=== PATIENT | female | born 1970 | race American Indian/Alaskan Native ===

== ENCOUNTER 2019-06-20 11:30 | Emergency (ER) | payer MEDICARE ==
[2019-06-20] MEDS ORDERED: SODIUM CHLORIDE 0.9% 1000 ML 1,000 ML IV ONE (12:35)
[2019-06-20] MEDS ORDERED: methylPREDNISolone Sod Succinate 125 MG/2 ML INJ IV ONE (12:35)
[2019-06-20] MEDS ORDERED: IPRATROPIUM/ALBUTEROL SULFATE 3 ML AMPUL.NEB IH ONE (12:36)
[2019-06-20] MEDS ORDERED: KETOROLAC 30 MG/1 ML INJ IV ONE ×2 (13:25→13:27)
[2019-06-20] MEDS ORDERED: KETOROLAC 30 MG/1 ML INJ ONE (13:28)
--- NOTE | 2019-06-20 13:58 | XRay Report ---
CHEST 1 VIEW INDICATION: cough. COMPARISON: None FINDINGS: Support devices: None. Heart: Within normal limits. Lungs/Pleura: No acute air space or interstitial disease. Additional findings: None. IMPRESSION: No acute findings. Signer Name: Aram Gore Jr, MD Signed: 06/20/2019 1:54 PM Workstation Name: [id number]
--- NOTE | 2019-06-20 14:16 | Emergency Department Report ---
- General Chief Complaint: Dyspnea/Respdistress Stated Complaint: JM Time Seen by Provider: 06/20/19 11:57 Source: patient, EMS Mode of arrival: Stretcher Limitations: No Limitations - History of Present Illness Initial Comments: Patient denies fam hx PE/DVT, denies recent travel, denies hormone use MD Complaint: cough -: Gradual, days(s) Severity: moderate Severity scale (0 -10): 3 Consistency: intermittent Improves With: nothing Worsens With: nothing Context: sick contacts (coughing runny nose), other (reports drug abuse smokes cocaine) Associated Symptoms: myalgias, cough (sputum production), chest pain, shortness of breath. denies: fever, chills, diaphoresis, headache, rhinorrhea, nasal congestion, sore throat, stiff neck, abdominal pain, nausea, vomiting, diarrhea, dysuria, rash, confusion, right sweats, weight loss, epistaxis, hoarseness, ear pain - Related Data Home Medications Medication Instructions Recorded Confirmed Last Taken ALPRAZolam [Xanax] 0.5 mg PO BID PRN 07/29/13 07/29/13 Unknown Previous Rx's Medication Instructions Recorded Last Taken Type Albuterol Sulfate [Ventolin HFA] 2 puff IH Q4H PRN #1 hfa.aer.ad 07/30/13 Unknown Rx Ciprofloxacin HCl [Cipro] 500 mg PO Q12H #20 tab 07/30/13 Unknown Rx Loratadine [Claritin] 10 mg PO DAILY #30 tablet 07/30/13 Unknown Rx Promethazine /Codeine 5 ml PO Q6H PRN #150 udc 07/30/13 Unknown Rx [Phenergan/Codeine 6.25-10 mg/5 ml] Cyclobenzaprine [Flexeril] 5 mg PO TID PRN #30 tablet 08/06/13 Unknown Rx Hydrocortisone 2.5% [Hytone 2.5% 1 applicatio TP TID #1 tube 05/22/14 Unknown Rx CREAM] Loratadine [Claritin] 10 mg PO DAILY #15 tablet 05/22/14 Unknown Rx diphenhydrAMINE [Benadryl] 25 mg PO Q6HR PRN #20 capsule 05/22/14 Unknown Rx predniSONE [Deltasone] 40 mg PO QDAY #6 tab 08/21/14 Unknown Rx Acetaminophen/Codeine 1 tab PO Q6H PRN #10 tab 10/14/14 Unknown Rx [Acetaminophen-Codeine #3 TAB] Cyclobenzaprine [Flexeril 10 MG 10 mg PO TID PRN #15 tablet 10/14/14 Unknown Rx TAB] Ibuprofen [Motrin 800 MG tab] 600 mg PO TID PRN #20 tablet 10/14/14 Unknown Rx Albuterol Sulfate [Proair 90 mcg IH Q4H PRN #1 aer.pow.ba 06/20/19 Unknown Rx Respiclick] Azithromycin [Zithromax Z-MARIBEL] 250 mg PO DAILY #4 tablet 06/20/19 Unknown Rx predniSONE [Deltasone] 50 mg PO QDAY #5 tab 06/20/19 Unknown Rx Allergies Allergy/AdvReac Type Severity Reaction Status Date / Time No Known Allergies Allergy Verified 07/29/13 21:08 ED Review of Systems ROS: Stated complaint: JM Other details as noted in HPI Other: GENERAL: No weight change, fatigue, fever, chills, or night sweats SKIN: No changes in skin or hair, no itching, no rashes, no jaundice HEAD: No trauma, headache, or visual changes EYES: No blurriness, tearing, itching, acute visual loss, conjunctival discoloration, or scleral icterus EARS: No hearing loss, tinnitus, vertigo, or earache NOSE: No rhinorrhea, stuffiness, sneezing, itching, or epistaxis MOUTH: No bleeding gums, hoarseness, sore throat, or swelling CARDIAC: No new murmur, chest pain, palpitations, dyspnea on exertion, orthopnea, PND, or edema RESPIRATORY: Shortness of breath, wheeze, cough, sputum production. No hemoptysis, pneumonia, asthma, bronchitis, or emphysema GI: No change in appetite, nausea, vomiting, dysphagia, diarrhea, constipation, hematemesis, melena, hematochezia, or abdominal pain URINARY: No frequency, urgency, polyuria, dysuria, hematuria, or incontinence MUSCULOSKELETAL: No muscle weakness, joint stiffness, decrease in range of motion, redness, swelling NEUROLOGIC: No headache, syncope, loss of sensation, numbness, tingling, tremors, weakness, paralysis, seizures HEMATOLOGIC: No anemia, easy bruising, bleeding, petechiae, or purpura ENDOCRINE: No hot or cold intolerance, sweating, polyuria, polydipsia or, polyphagia no thyroid problems PSYCHIATRIC: No change in mood, no anxiety, no depression ED Past Medical Hx - Past Medical History Previous Medical History?: Yes Additional medical history: Cerebral palsy - Surgical History Past Surgical History?: Yes Additional Surgical History: Hysterectomy, foot, breast reduction, , and lung collaspase. - Social History Smoking Status: Never Smoker Substance Use Type: None - Medications Home Medications: Home Medications Medication Instructions Recorded Confirmed Last Taken Type ALPRAZolam [Xanax] 0.5 mg PO BID PRN 07/29/13 07/29/13 Unknown History Albuterol Sulfate [Ventolin HFA] 2 puff IH Q4H PRN #1 hfa.aer.ad 07/30/13 Unknown Rx Ciprofloxacin HCl [Cipro] 500 mg PO Q12H #20 tab 07/30/13 Unknown Rx Loratadine [Claritin] 10 mg PO DAILY #30 tablet 07/30/13 Unknown Rx Promethazine /Codeine 5 ml PO Q6H PRN #150 udc 07/30/13 Unknown Rx [Phenergan/Codeine 6.25-10 mg/5 ml] Cyclobenzaprine [Flexeril] 5 mg PO TID PRN #30 tablet 08/06/13 Unknown Rx Hydrocortisone 2.5% [Hytone 2.5% 1 applicatio TP TID #1 tube 05/22/14 Unknown Rx CREAM] Loratadine [Claritin] 10 mg PO DAILY #15 tablet 05/22/14 Unknown Rx diphenhydrAMINE [Benadryl] 25 mg PO Q6HR PRN #20 capsule 05/22/14 Unknown Rx predniSONE [Deltasone] 40 mg PO QDAY #6 tab 05/22/14 Unknown Rx Acetaminophen/Codeine 1 tab PO Q6H PRN #10 tab 10/14/14 Unknown Rx [Acetaminophen-Codeine #3 TAB] Cyclobenzaprine [Flexeril 10 MG 10 mg PO TID PRN #15 tablet 10/14/14 Unknown Rx TAB] Ibuprofen [Motrin 800 MG tab] 600 mg PO TID PRN #20 tablet 10/14/14 Unknown Rx Albuterol Sulfate [Proair 90 mcg IH Q4H PRN #1 aer.pow.ba 06/20/19 Unknown Rx Respiclick] Azithromycin [Zithromax Z-MARIBEL] 250 mg PO DAILY #4 tablet 06/20/19 Unknown Rx predniSONE [Deltasone] 50 mg PO QDAY #5 tab 06/20/19 Unknown Rx ED Physical Exam - General Limitations: No Limitations - Other Other exam information: GENERAL: Patient in no acute distress HEAD: Normocephalic, atraumatic EYES: PERRLA, EOM intact, no scleral icterus, no conjunctival hemorrhage, visual valenzuela and acuity wnl NOSE: No tenderness, discharge, sinus tenderness MOUTH: No erythema, bleeding, exudate HEART: Tachycardia, no murmur, S1-S2 are auscultated, no edema, pulses are symmetric LUNGS: Wheezing bilaterally, mild tachypnea. No respiratory distress. Bilateral breath sounds, No retractions, No rales, rhonchi ABDOMEN: Normal bowel sounds, abdomen soft, no tenderness, no rebound, no guarding, no distention, no masses, no CVA tenderness MUSCULOSKELETAL: Normal joint range of motion, no redness, no swelling, no tenderness NEUROLOGIC: GCS 15, Alert and Oriented x3, Cranial nerves intact, normal sensation, normal strength, no cerebellar deficit, NIHSS 0 SKIN: Skin is warm and dry, no wounds, no rashes ED Course Vital Signs 06/20/19 06/20/19 06/20/19 11:33 12:19 12:20 Temperature 98.8 F 98.8 F Pulse Rate 79 79 Pulse Rate [ Anterior Bilateral Throughout] Respiratory 16 13 14 Rate Respiratory Rate [Anterior Bilateral Throughout] Blood Pressure 150/93 Blood Pressure 134/84 [Left] O2 Sat by Pulse 97 98 98 Oximetry 06/20/19 13:31 Temperature Pulse Rate Pulse Rate [ 82 Anterior Bilateral Throughout] Respiratory Rate Respiratory 18 Rate [Anterior Bilateral Throughout] Blood Pressure Blood Pressure [Left] O2 Sat by Pulse Oximetry ED Medical Decision Making - Radiology Data Radiology results: report reviewed - Medical Decision Making Patient comfortable. Reports symptom improvement. Ambulating in the ER without difficulty. Updated with results. Plan discharge with outpatient follow up. Return if any worsening. Critical care attestation.: If time is entered above; I have spent that time in minutes in the direct care of this critically ill patient, excluding procedure time. ED Disposition Clinical Impression: Bronchitis Disposition: DC- TO HOME OR SELFCARE Is pt being admited?: No Condition: Stable Instructions: Acute Bronchitis (ED) Prescriptions: predniSONE [Deltasone] 50 mg PO QDAY #5 tab Albuterol Sulfate [Proair Respiclick] 90 mcg IH Q4H PRN #1 aer.pow.ba PRN Reason: Wheezing Azithromycin [Zithromax Z-MARIBEL] 250 mg PO DAILY #4 tablet Referrals: PRIMARY CARE, [Primary Care Provider] - 2-3 Days [facility] [Outside] - 2-3 Days Time of Disposition: 14:23
[2019-06-20 16:02] VITALS: BP 133/83
== END 2019-06-20 15:45 | disposition home or self-care (01) ==
LOC: ED 11:30
DX: J40 Bronchitis, not specified as acute or chronic (principal); Z79.899 Other long term (current) drug therapy; Z90.710 Acquired absence of both cervix and uterus; Z98.890 Other specified postprocedural states
CPT/HCPCS: 71045; 94640; 96374; 96375; 99284; J1885; J2930; J7030; 94644; 96361

== ENCOUNTER 2021-03-16 12:51 | Outpatient (CLI) | payer MEDICARE ==
--- NOTE | 2021-03-16 14:52 | XRay Report ---
CERVICAL SPINE 5 VIEWS INDICATION / CLINICAL INFORMATION: NECK PAIN. COMPARISON: None available. FINDINGS: Reversal of the normal cervical lordosis which may be positional. Moderate degenerative change from C 3 to C5 and at the C6-7 level. No other significant skeletal abnormality Signer Name: Jose Manuel Beltran MD FACR Signed: 03/16/2021 2:47 PM Workstation Name: [id number]
--- NOTE | 2021-03-16 14:53 | XRay Report ---
LUMBAR SPINE 6 VIEWS INDICATION / CLINICAL INFORMATION: LOW BACK PAIN. COMPARISON: None available. FINDINGS: Narrowing of the L3-4 and L4-5 disc spaces with mild hypertrophic change. No other significant skelet al abnormality. Alignment is normal. Signer Name: Jose Manuel Beltran MD FACR Signed: 03/16/2021 2:48 PM Workstation Name: [id number]
--- NOTE | 2021-03-16 14:53 | XRay Report ---
CHEST 2 VIEWS INDICATION / CLINICAL INFORMATION: SOB PERIODIC. COMPARISON: 06/20/2019 FINDINGS: SUPPORT DEVICES: None. HEART / MEDIASTINUM: No significant abnormality. LUNGS / PLEURA: No significant pulmonary or pleural abnormality. No pneumothorax. ADDITIONAL FINDINGS: No significant additional findings. IMPRESSION: No significant abnormality or interval change from 06/20/2019 Signer Name: Jose Manuel Beltran MD FACR Signed: 03/16/2021 2:48 PM Workstation Name: [email or web address]
== END 2021-03-16 12:52 | disposition home or self-care (01) ==
LOC: XRAY 12:51
PROVIDERS: ATTEND Family Medicine
DX: R06.02 Shortness of breath (principal); M47.812 Spondylosis without myelopathy or radiculopathy, cervical region; M48.02 Spinal stenosis, cervical region
CPT/HCPCS: 71046; 72050; 72110

== ENCOUNTER 2021-04-12 13:16 | Emergency (ER) | payer MEDICARE ==
[2021-04-12 14:15] VITALS: BP 156/93
[2021-04-12 15:47] LABS: Basophils # (Auto) 0.1 K/mm3 (0.0-0.1); Basophils % (Auto) 0.4 % (0.0-1.8); Eosinophils % (Auto) 0.2 % (0.0-4.3); Hematocrit 44.8 % (30.3-42.9); Hemoglobin 14.6 gm/dl (10.1-14.3); Lymphocytes # (Auto) 1.9 K/mm3 (1.2-5.4); Lymphocytes % (Auto) 15.4 % (13.4-35.0); Mean Corpuscular HGB Conc 33 % (30-34); Mean Corpuscular Volume 95 fl (79-97); Monocytes # (Auto) 1.1 K/mm3 (0.0-0.8); Monocytes % (Auto) 9.4 % (0.0-7.3); Platelet Count 173 K/mm3 (140-440); Red Blood Count 4.74 M/mm3 (3.65-5.03); Red Cell Distribution Width 14.1 % (13.2-15.2)
--- NOTE | 2021-04-12 15:55 | XRay Report ---
CHEST 2 VIEWS INDICATION / CLINICAL INFORMATION: shortness of breath. COMPARISON: 03/16/21 FINDINGS: SUPPORT DEVICES: None. HEART / MEDIASTINUM: No significant abnormality. LUNGS / PLEURA: Interval development of patchy bilateral pulmonary opacities. No pneumothorax. ADDITIONAL FINDINGS: No significant additional findings. IMPRESSION: 1. Patchy bilateral pneumonia. Signer Name: Antonette Young MD Signed: 04/12/2021 3:51 PM Workstation Name: [id number]
[2021-04-12 16:51] LABS: Alanine Aminotransferase 13 units/L (7-56); Albumin 4.6 g/dL (3.9-5); Blood Urea Nitrogen 7 mg/dL (7-17); Calcium 9.6 mg/dL (8.4-10.2); Hemolysis Index 168
--- NOTE | 2021-04-12 17:07 | Event Note ---
ED Screening Note Date of service: 04/12/21 Time: 17:01 ED Screening Note: 50 y/o female pt w/ hx of tobacco use (in remission) and pneumonia requiring ICU admission/mechanical ventilation presents to ED w/ complaints of fever, chills, productive cough, SOB, and myalgias starting two days ago. No known sick contacts. No current steroid or antibiotic use. Patient received her Covid vaccination series in December. No recent travel. General: Awake, appropriately interactive, no acute distress. Neck: Supple. Full range of motion intact. Cardiovascular: Tachycardic. Normal peripheral perfusion. Pulmonary: Dyspnea on exertion. Diffuse rhonchi bilaterally with expiratory wheezing throughout. Skin: No apparent rashes or lesions. Neurological: No facial asymmetry. Speech is clear. Follows commands. Patient is alert and oriented. Musculoskeletal: Moves all four extremities spontaneously with normal range of motion. Psych: Cooperative. Appropriate mood and affect. Labs and chest x-ray ordered by wig dresser prior to [facility]SE. I have greeted and performed a focused rapid initial assessment of this patient. A comprehensive ED assessment and evaluation of the patient, analysis of all test results, and completion of the medical decision-making process will be conducted by additional ED providers. This initial assessment/diagnostic orders/clinical plan/treatment(s) is/are subject to change based on patients health status, clinical progression and re-assessment. Further treatment and workup at subsequent clinical provider's discretion. Patient/guardian urged not to elope from the ED as their condition may be serious if not clinically assessed and managed.
[2021-04-12 18:04] LABS: BUN/Creatinine Ratio 14
--- NOTE | 2021-04-13 10:53 | Electrocardiograph Report ---
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
--- NOTE | 2021-04-13 11:00 | History and Physical Report ---
History of Present Illness Date of examination: 04/13/21 Date of admission: 04/13/21 Medications and Allergies Allergies Allergy/AdvReac Type Severity Reaction Status Date / Time No Known Allergies Allergy Verified 07/29/13 21:08 Home Medications Medication Instructions Recorded Confirmed Last Taken Type ALPRAZolam [Xanax] 0.5 mg PO BID PRN 07/29/13 07/29/13 Unknown History Albuterol Sulfate [Ventolin HFA] 2 puff IH Q4H PRN #1 hfa.aer.ad 07/30/13 Unknown Rx Ciprofloxacin HCl [Cipro] 500 mg PO Q12H #20 tab 07/30/13 Unknown Rx Loratadine (Nf) [Claritin] 10 mg PO DAILY #30 tablet 07/30/13 Unknown Rx Promethazine /Codeine 5 ml PO Q6H PRN #150 udc 07/30/13 Unknown Rx [Phenergan/Codeine 6.25-10 mg/5 ml] Cyclobenzaprine [Flexeril] 5 mg PO TID PRN #30 tablet 08/06/13 Unknown Rx Hydrocortisone 2.5% [Hytone 2.5% 1 applicatio TP TID #1 tube 05/22/14 Unknown Rx CREAM] Loratadine (Nf) [Claritin] 10 mg PO DAILY #15 tablet 05/22/14 Unknown Rx diphenhydrAMINE [Benadryl] 25 mg PO Q6HR PRN #20 capsule 05/22/14 Unknown Rx predniSONE [Deltasone] 40 mg PO QDAY #6 tab 05/22/14 Unknown Rx Acetaminophen/Codeine 1 tab PO Q6H PRN #10 tab 10/14/14 Unknown Rx [Acetaminophen-Codeine #3 TAB] Cyclobenzaprine [Flexeril 10 MG 10 mg PO TID PRN #15 tablet 10/14/14 Unknown Rx TAB] Ibuprofen [Motrin 800 MG tab] 600 mg PO TID PRN #20 tablet 10/14/14 Unknown Rx Albuterol Sulfate [Proair 90 mcg IH Q4H PRN #1 aer.pow.ba 06/20/19 Unknown Rx Respiclick] Azithromycin [Zithromax Z-MARIBEL] 250 mg PO DAILY #4 tablet 06/20/19 Unknown Rx Benzonatate [Tessalon Perles] 100 mg PO Q8HR PRN #15 capsule 06/20/19 Unknown Rx predniSONE [Deltasone] 50 mg PO QDAY #5 tab 06/20/19 Unknown Rx Exam - Constitutional Vitals: Temp Pulse Resp BP Pulse Ox 99.8 F H 99 H 19 156/93 92 04/12/21 14:13 04/12/21 14:13 04/12/21 14:13 04/12/21 14:13 04/12/21 14:13 HEART Score - HEART Score Troponin: Troponin T < 0.010 ng/mL (0.00-0.029) 04/12/21 15:23 Results - Labs CBC & Chem 7: 04/12/21 15:23 04/12/21 15:23 Labs: Abnormal lab results 04/12/21 04/12/21 Range/Units 15:23 15:23 WBC 12.2 H (4.5-11.0) K/mm3 Hgb 14.6 H (10.1-14.3) gm/dl Hct 44.8 H (30.3-42.9) % [place] % (Auto) 9.4 H (0.0-7.3) % [place] # (Auto) 1.1 H (0.0-0.8) K/mm3 Seg Neutrophils % 74.6 H (40.0-70.0) % Seg Neutrophils # 9.1 H (1.8-7.7) K/mm3 Carbon Dioxide 17 L (22-30) mmol/L Creatinine 0.5 L (0.6-1.2) mg/dL Glucose 107 H (65-100) mg/dL Assessment and Plan - Patient Problems (1) Acute respiratory failure with hypoxia Plan to address problem: Probably due to community-acquired pneumonia Oxygen titrate O2 sats more than 90% Will rule out COVID-19 by checking [place] PCR oxygen evaluation inpatient and prior to discharge (2) Pneumonia Plan to address problem: Probably community-acquired pneumonia; Empiric antibiotics Levaquin. Oxygen titrate O2 sats to more than 90% Blood cultures supportive care. As patient has bilateral pneumonia and fever We will rule out COVID-19 (3) Suspected 2019 novel coronavirus infection Status: Acute Plan to address problem: PUI/high suspicion for COVID-19 Contact and droplet isolation [place] PCR test requested Oxygen titrate O2 sats more than 90% If COVID-19 is positive will consult ID And inflammatory markers if needed (4) DVT prophylaxis Status: Acute (5) Full code status Status: Acute (6) Morbid obesity with BMI of 40.0-44.9, adult Status: Acute Plan to address problem: Patient need dietary modification, exercise as tolerated and weight reduction when medically stable Patient also needs pulmonary evaluation and, outpatient sleep study to evaluate for obstructive sleep apnea Recommend bariatric surgical evaluation as outpatient for weight reduction program, when medically stable
[2021-04-13] MEDS ORDERED: ONDANSETRON 4 MG/2 ML INJ IV PRN (11:05)
[2021-04-13] MEDS ORDERED: DOCUSATE SODIUM 100 MG CAP PO PRN (11:05)
[2021-04-13] MEDS ORDERED: IBUPROFEN 600 MG TAB PO PRN (11:05)
[2021-04-13] MEDS ORDERED: oxyCODONE /ACETAMINOPHEN 5-325MG TAB PO PRN (11:05)
[2021-04-13] MEDS ORDERED: ACETAMINOPHEN 325 MG TAB PO PRN (11:05)
[2021-04-13] MEDS ORDERED: diphenhydrAMINE 25 MG CAP PO PRN (11:12)
[2021-04-13] MEDS ORDERED: ALBUTEROL 8.5 GM MDI INHALATION IH PRN (11:12)
[2021-04-13] MEDS ORDERED: ALPRAZolam 0.5 MG TAB PO PRN (11:12)
[2021-04-13] MEDS ORDERED: guaiFENesin DM 200/20 MG ORAL LIQD 10 ML PO PRN (11:19)
[2021-04-13] MEDS ORDERED: hydrALAZINE 20 MG/1 ML INJ IV PRN (11:20)
[2021-04-13] MEDS ORDERED: ZOLPIDEM 5 MG TAB PO ONE (12:00)
[2021-04-13] MEDS ORDERED: HYDROCORTISONE 2.5% Topical CREAM 20 GM TP SCH (14:00)
== END 2021-04-12 22:00 | disposition left against medical advice (07) ==
LOC: ED 13:16
DX: R05 Cough (principal); Z53.21 Procedure and treatment not carried out due to patient leaving prior to being seen by health care provider
CPT/HCPCS: 36415; 71046; 80053; 83880; 84484; 85025; 93005; A6250

== ENCOUNTER 2021-04-13 02:31 | Inpatient (IN) | payer MEDICARE ==
[2021-04-13] MEDS ORDERED: SODIUM CHLORIDE 0.9% 1000 ML 1,000 ML IV ONE (09:23)
[2021-04-13] MEDS ORDERED: ACETAMINOPHEN 500 MG TAB PO ONE (09:23)
[2021-04-13] MEDS ORDERED: ONDANSETRON 4 MG/2 ML INJ IV ONE (09:23)
[2021-04-13] MEDS ORDERED: AZITHROMYCIN/NS 500 MG/250 ML 500 MG/250 ML BAG IV ONE (09:36)
[2021-04-13] MEDS ORDERED: dexAMETHasone 4 MG/ML VIAL IV ONE (09:36)
[2021-04-13] MEDS ORDERED: cefTRIAXone/NS 1 GM/50 ML 1 GM/50 ML BAG IV ONE ×2 (09:36→12:20)
--- NOTE | 2021-04-13 09:39 | Emergency Department Report ---
ED General Adult HPI - General Chief complaint: Dyspnea/Respdistress Stated complaint: SOB PUI?: Yes Time Seen by Provider: 04/13/21 09:07 Source: patient, RN notes reviewed, old records reviewed Mode of arrival: Ambulatory Limitations: Physical Limitation - History of Present Illness Initial comments: The patient was evaluated in the emergency department for symptoms described in the history of present illness. He/she was evaluated in the context of the global COVID-19 pandemic, which necessitated consideration that the patient might be at risk for infection with the virus that causes COVID-19. Institutional protocols and algorithms that pertain to the evaluation of patients at risk for COVID-19 are in a state of rapid change based on information released by regulatory bodies including the CDC and federal and state organizations. These policies and algorithms were followed during the patient's care in the emergency department. Please note that these policies, procedures and recommendations changed on a rapid basis. During the entire history and physical examination, I had on complete personal protective equipment. Primary CARE doctor: Dr. Menard Past medical history: Body mass index 42, cerebral palsy, hysterectomy, pneumonia, intubation, up-to-date with COVID-19 vaccination This patient is a pleasant 50-year-old female who is not known to myself previously. The patient presents to the ER today with a complaint of chest tightness, cough, shortness of breath, malaise, fatigue, lack of energy. Denies loss of taste and smell. Has mild headache. No neck pain. Positive chest tightness. No abdominal pain. Positive nausea. No vomiting. No urinary symptoms. Patient reports being intubated 2 years ago at [facility] for similar symptoms. She is a prior tobacco user, but has not smoked tobacco for 3 to 4 months. Her symptoms are constant, worsened with physical exertion, decreased with rest, and with supplemental oxygen. She had laboratory studies within the past 24 hours, which demonstrated a leukocytosis, and anion gap acidosis. She is not currently on antibiotics. She also recently had a chest x-ray which showed multilobar pneumonia. -: Gradual, days(s) Severity scale (0 -10): 8 Consistency: constant Improves with: other Worsens with: other - Related Data Home Medications Medication Instructions Recorded Confirmed Last Taken ALPRAZolam [Xanax] 0.5 mg PO BID PRN 07/29/13 07/29/13 Unknown Previous Rx's Medication Instructions Recorded Last Taken Type Albuterol Sulfate [Ventolin HFA] 2 puff IH Q4H PRN #1 hfa.aer.ad 07/30/13 Unknown Rx Ciprofloxacin HCl [Cipro] 500 mg PO Q12H #20 tab 07/30/13 Unknown Rx Loratadine (Nf) [Claritin] 10 mg PO DAILY #30 tablet 07/30/13 Unknown Rx Promethazine /Codeine 5 ml PO Q6H PRN #150 udc 07/30/13 Unknown Rx [Phenergan/Codeine 6.25-10 mg/5 ml] Cyclobenzaprine [Flexeril] 5 mg PO TID PRN #30 tablet 08/06/13 Unknown Rx Hydrocortisone 2.5% [Hytone 2.5% 1 applicatio TP TID #1 tube 05/22/14 Unknown Rx CREAM] Loratadine (Nf) [Claritin] 10 mg PO DAILY #15 tablet 05/22/14 Unknown Rx diphenhydrAMINE [Benadryl] 25 mg PO Q6HR PRN #20 capsule 05/22/14 Unknown Rx predniSONE [Deltasone] 40 mg PO QDAY #6 tab 05/22/14 Unknown Rx Acetaminophen/Codeine 1 tab PO Q6H PRN #10 tab 10/14/14 Unknown Rx [Acetaminophen-Codeine #3 TAB] Cyclobenzaprine [Flexeril 10 MG 10 mg PO TID PRN #15 tablet 10/14/14 Unknown Rx TAB] Ibuprofen [Motrin 800 MG tab] 600 mg PO TID PRN #20 tablet 10/14/14 Unknown Rx Albuterol Sulfate [Proair 90 mcg IH Q4H PRN #1 aer.pow.ba 06/20/19 Unknown Rx Respiclick] Azithromycin [Zithromax Z-MARIBEL] 250 mg PO DAILY #4 tablet 06/20/19 Unknown Rx Benzonatate [Tessalon Perles] 100 mg PO Q8HR PRN #15 capsule 06/20/19 Unknown Rx predniSONE [Deltasone] 50 mg PO QDAY #5 tab 06/20/19 Unknown Rx Allergies Allergy/AdvReac Type Severity Reaction Status Date / Time No Known Allergies Allergy Verified 07/29/13 21:08 ED Review of Systems ROS: Stated complaint: SOB Other details as noted in HPI Constitutional: fever, malaise, weakness Eyes: denies: eye discharge ENT: congestion Respiratory: cough, shortness of breath, SOB with exertion, SOB at rest Cardiovascular: chest pain Gastrointestinal: denies: vomiting Genitourinary: denies: dysuria Musculoskeletal: myalgia Neurological: weakness Psychiatric: anxiety Hematological/Lymphatic: denies: easy bleeding ED Past Medical Hx - Past Medical History Previous Medical History?: Yes Additional medical history: Cerebral palsy - Surgical History Past Surgical History?: Yes Hx Breast Surgery: Yes Additional Surgical History: Hysterectomy, foot, breast reduction, , and lung collaspase. - Social History Smoking Status: Never Smoker - Medications Home Medications: Home Medications Medication Instructions Recorded Confirmed Last Taken Type ALPRAZolam [Xanax] 0.5 mg PO BID PRN 07/29/13 07/29/13 Unknown History Albuterol Sulfate [Ventolin HFA] 2 puff IH Q4H PRN #1 hfa.aer.ad 07/30/13 Unknown Rx Ciprofloxacin HCl [Cipro] 500 mg PO Q12H #20 tab 07/30/13 Unknown Rx Loratadine (Nf) [Claritin] 10 mg PO DAILY #30 tablet 07/30/13 Unknown Rx Promethazine /Codeine 5 ml PO Q6H PRN #150 udc 07/30/13 Unknown Rx [Phenergan/Codeine 6.25-10 mg/5 ml] Cyclobenzaprine [Flexeril] 5 mg PO TID PRN #30 tablet 08/06/13 Unknown Rx Hydrocortisone 2.5% [Hytone 2.5% 1 applicatio TP TID #1 tube 05/22/14 Unknown Rx CREAM] Loratadine (Nf) [Claritin] 10 mg PO DAILY #15 tablet 05/22/14 Unknown Rx diphenhydrAMINE [Benadryl] 25 mg PO Q6HR PRN #20 capsule 05/22/14 Unknown Rx predniSONE [Deltasone] 40 mg PO QDAY #6 tab 05/22/14 Unknown Rx Acetaminophen/Codeine 1 tab PO Q6H PRN #10 tab 10/14/14 Unknown Rx [Acetaminophen-Codeine #3 TAB] Cyclobenzaprine [Flexeril 10 MG 10 mg PO TID PRN #15 tablet 10/14/14 Unknown Rx TAB] Ibuprofen [Motrin 800 MG tab] 600 mg PO TID PRN #20 tablet 10/14/14 Unknown Rx Albuterol Sulfate [Proair 90 mcg IH Q4H PRN #1 aer.pow.ba 06/20/19 Unknown Rx Respiclick] Azithromycin [Zithromax Z-MARIBEL] 250 mg PO DAILY #4 tablet 06/20/19 Unknown Rx Benzonatate [Tessalon Perles] 100 mg PO Q8HR PRN #15 capsule 06/20/19 Unknown Rx predniSONE [Deltasone] 50 mg PO QDAY #5 tab 06/20/19 Unknown Rx ED Physical Exam - General Limitations: Physical Limitation General appearance: alert, anxious, in distress, obese - Head Head exam: Present: atraumatic, normocephalic - Eye Eye exam: Present: normal appearance, EOMI. Absent: nystagmus - ENT ENT exam: Present: normal exam, normal orophraynx, mucous membranes moist, normal external ear exam - Neck Neck exam: Present: normal inspection, full ROM. Absent: tenderness, meningismus - Respiratory Respiratory exam: Present: respiratory distress, accessory muscle use, other (Pulmonary auscultation not performed secondary to lack of disposable stethoscope). Absent: stridor - Cardiovascular Cardiovascular Exam: Present: normal rhythm, tachycardia, other (Tachycardic rate seen on traffic monitor specialist. Cardiac auscultation is not performed secondary to lack of disposable stethoscope) - GI/Abdominal GI/Abdominal exam: Present: soft. Absent: distended, tenderness, guarding, rebound, rigid, pulsatile mass - Extremities Exam Extremities exam: Present: normal inspection, full ROM, other (2+ pulses noted in the bilateral upper and lower extremities. There is no palpable cord. negative Homans sign. Muscular compartments are soft. The pelvis is stable.). Absent: pedal edema, calf tenderness - Back Exam Back exam: Present: normal inspection, full ROM. Absent: tenderness, CVA tenderness (R), CVA tenderness (L), paraspinal tenderness, vertebral tenderness - Neurological Exam Neurological exam: Present: alert, oriented X3, other (No facial droop. Tongue midline. Extraocular movements intact bilaterally. Facial sensation intact to light touch in V1, V2, V3 distribution bilaterally. 5 and a 5 strength in 4 extremities. Sensation intact to light touch in 4 extremities.). Absent: motor sensory deficit - Psychiatric Psychiatric exam: Present: anxious - Skin Skin exam: Present: warm, dry, intact, normal color. Absent: rash ED Course Vital Signs 04/13/21 04/13/21 04/13/21 02:47 02:58 08:31 Temperature 100.3 F H 99.8 F H Pulse Rate 104 H 100 H Respiratory 25 H 24 32 H Rate Blood Pressure 150/88 142/82 [Left] O2 Sat by Pulse 91 95 96 Oximetry 04/13/21 08:49 Temperature Pulse Rate 95 H Respiratory Rate Blood Pressure [Left] O2 Sat by Pulse 95 Oximetry ED Medical Decision Making - Lab Data Vital Signs 04/13/21 04/13/21 04/13/21 02:47 02:58 08:31 Temperature 100.3 F H 99.8 F H Pulse Rate 104 H 100 H Respiratory 25 H 24 32 H Rate Blood Pressure 150/88 142/82 [Left] O2 Sat by Pulse 91 95 96 Oximetry 04/13/21 08:49 Temperature Pulse Rate 95 H Respiratory Rate Blood Pressure [Left] O2 Sat by Pulse 95 Oximetry - EKG Data -: EKG Interpreted by Ms EKG shows normal: sinus rhythm Rate: normal - EKG Data When compared to previous EKG there are: previous EKG unavailable 04/13/21 09:52 EKG interpreted at 09: 42 Sinus rhythm, with a rate of 97 bpm. There is a normal axis, and a normal P wave axis. Motion artifact, multiple PVCs. QTC prolonged, 489 ms. Not a STEMI. - Radiology Data Radiology results: report reviewed, image reviewed [facility] [address] [place] [address] XRay Report Signed Patient: HI ONEILL MR#: [id number] : 1970 Acct:[id number] Age/Sex: 50 / F ADM Date: 04/12/21 Loc: ED Attending Dr: Ordering Physician: ALEJANDRA BETANCUR Date of Service: 04/12/21 Procedure(s): XR chest routine 2V Accession Number(s): [id number] cc: ALEJANDRA BETANCUR Fluoro Time In Minutes: CHEST 2 VIEWS INDICATION / CLINICAL INFORMATION: shortness of breath. COMPARISON: 03/16/21 FINDINGS: SUPPORT DEVICES: None. HEART / MEDIASTINUM: No significant abnormality. LUNGS / PLEURA: Interval development of patchy bilateral pulmonary opacities. No pneumothorax. ADDITIONAL FINDINGS: No significant additional findings. IMPRESSION: 1. Patchy bilateral pneumonia. Signer Name: Antonette Young MD Signed: 04/12/2021 3:51 PM Workstation Name: [id number] Transcribed By: DT Dictated By: Jez Young MD Electronically Authenticated By: Jez Young MD Signed Date/Time: 04/12/211550 DD/ - Medical Decision Making Differential diagnosis, including but not limited to: Pneumonia, bacterial versus viral, COVID-19, dehydration, acute hypoxic respiratory failure Assessment and plan: 50-year-old female, with low-grade fever, heart rate greater than 90, leukocytosis, saturating 89 to 90% on room air, meets sepsis/systemic inflammatory response syndrome criteria, by merit of the aforementioned, with clinical and radiographic evidence of multilobar pneumonia. Patient is up-to-date with COVID-[address] patient on isolation and supplemental oxygen; 3 L at this time. Start fluids, antibiotics, steroids, obtain Covid labs, Covid swab, and admit patient to the medical service. Discussed this plan of care with the patient. She is amenable to the aforementioned. Patient does not meet criteria for septic shock at this time. Hospital physician, Dr. Maximino Villalobos to admit to IMS Metabolic acidosis likely secondary to dehydration. Critical Care Time: Yes Critical care time in (mins) excluding proc time.: 35 Critical care attestation.: If time is entered above; I have spent that time in minutes in the direct care of this critically ill patient, excluding procedure time. ED Disposition Clinical Impression: SIRS (systemic inflammatory response syndrome), Acute respiratory failure with hypoxia, Suspected 2019 novel coronavirus infection, Pneumonia Disposition: OP ADMIT IP TO THIS HOSP Is pt being admited?: Yes Does the pt Need Aspirin: No Condition: Serious Instructions: Bacterial Pneumonia (ED) Referrals: PRIMARY CARE, [Primary Care Provider] - 3-5 Days
--- NOTE | 2021-04-13 11:48 | History and Physical Report ---
Medications and Allergies Allergies Allergy/AdvReac Type Severity Reaction Status Date / Time No Known Allergies Allergy Verified 07/29/13 21:08 Home Medications Medication Instructions Recorded Confirmed Last Taken Type ALPRAZolam [Xanax] 0.5 mg PO BID PRN 07/29/13 07/29/13 Unknown History Albuterol Sulfate [Ventolin HFA] 2 puff IH Q4H PRN #1 hfa.aer.ad 07/30/13 Unknown Rx Ciprofloxacin HCl [Cipro] 500 mg PO Q12H #20 tab 07/30/13 Unknown Rx Loratadine (Nf) [Claritin] 10 mg PO DAILY #30 tablet 07/30/13 Unknown Rx Promethazine /Codeine 5 ml PO Q6H PRN #150 udc 07/30/13 Unknown Rx [Phenergan/Codeine 6.25-10 mg/5 ml] Cyclobenzaprine [Flexeril] 5 mg PO TID PRN #30 tablet 08/06/13 Unknown Rx Hydrocortisone 2.5% [Hytone 2.5% 1 applicatio TP TID #1 tube 05/22/14 Unknown Rx CREAM] Loratadine (Nf) [Claritin] 10 mg PO DAILY #15 tablet 05/22/14 Unknown Rx diphenhydrAMINE [Benadryl] 25 mg PO Q6HR PRN #20 capsule 05/22/14 Unknown Rx predniSONE [Deltasone] 40 mg PO QDAY #6 tab 05/22/14 Unknown Rx Acetaminophen/Codeine 1 tab PO Q6H PRN #10 tab 10/14/14 Unknown Rx [Acetaminophen-Codeine #3 TAB] Cyclobenzaprine [Flexeril 10 MG 10 mg PO TID PRN #15 tablet 10/14/14 Unknown Rx TAB] Ibuprofen [Motrin 800 MG tab] 600 mg PO TID PRN #20 tablet 10/14/14 Unknown Rx Albuterol Sulfate [Proair 90 mcg IH Q4H PRN #1 aer.pow.ba 06/20/19 Unknown Rx Respiclick] Azithromycin [Zithromax Z-MARIBEL] 250 mg PO DAILY #4 tablet 06/20/19 Unknown Rx Benzonatate [Tessalon Perles] 100 mg PO Q8HR PRN #15 capsule 06/20/19 Unknown Rx predniSONE [Deltasone] 50 mg PO QDAY #5 tab 06/20/19 Unknown Rx Exam - Constitutional Vitals: Temp Pulse Resp BP Pulse Ox 99.8 F H 89 18 120/73 95 04/13/21 08:31 04/13/21 11:29 04/13/21 11:29 04/13/21 11:29 04/13/21 11:29 Assessment and Plan - Patient Problems (1) Acute respiratory failure with hypoxia Plan to address problem: Probably due to community-acquired pneumonia Oxygen titrate O2 sats more than 90% Will rule out COVID-19 by checking [place] PCR oxygen evaluation inpatient and prior to discharge (2) Pneumonia Plan to address problem: Probably community-acquired pneumonia; Empiric antibiotics Levaquin. Oxygen titrate O2 sats to more than 90% Blood cultures supportive care. As patient has bilateral pneumonia and fever We will rule out COVID-19 (3) Suspected 2019 novel coronavirus infection Status: Acute Plan to address problem: PUI/high suspicion for COVID-19 Contact and droplet isolation [place] PCR test requested Oxygen titrate O2 sats more than 90% If COVID-19 is positive will consult ID And inflammatory markers if needed (4) DVT prophylaxis Status: Acute (5) Full code status Status: Acute (6) Morbid obesity with BMI of 40.0-44.9, adult Status: Acute Plan to address problem: Patient need dietary modification, exercise as tolerated and weight reduction when medically stable Patient also needs pulmonary evaluation and, outpatient sleep study to evaluate for obstructive sleep apnea Recommend bariatric surgical evaluation as outpatient for weight reduction bud helm, when medically stable
--- NOTE | 2021-04-13 11:51 | History and Physical Report ---
History of Present Illness Date of examination: 04/13/21 Date of admission: 04/13/2021 Chief complaint: Worsening shortness of breath History of present illness: 50-year-old morbidly obese female patient with Significant past medical history of COPD hypertension depression chronic pain syndrome presented to the emergency room with worsening shortness of breath presented last night was sent with prescriptions however returned early this morning with worsening symptoms Patient denies any sick contacts, no exposure to COVID-19 patients. Denies any fever but has mild nausea without vomiting or abdominal pain Patient has history of chronic tobacco use however reports that she quit 3 to 4 months ago Patient had previous history of intubation 2 years ago in [facility]. Initial work-up in the emergency room showed leukocytosis and anion gap acidosis Patient started on empiric antibiotics, x-ray showing multilobar pneumonia High suspicion for COVID-19 based on PUI Past History Past Medical History: COPD, diabetes, hypertension Past Surgical History: , hysterectomy, Other (breast reduction,lung collapse,Breast surgery, foot surgery) Social history: denies: smoking, alcohol abuse, prescription drug abuse Family history: no significant family history Medications and Allergies Allergies Allergy/AdvReac Type Severity Reaction Status Date / Time No Known Allergies Allergy Verified 07/29/13 21:08 Home Medications Medication Instructions Recorded Confirmed Last Taken Type ALPRAZolam [Xanax] 0.5 mg PO BID PRN 07/29/13 07/29/13 Unknown History Albuterol Sulfate [Ventolin HFA] 2 puff IH Q4H PRN #1 hfa.aer.ad 07/30/13 Unknown Rx Ciprofloxacin HCl [Cipro] 500 mg PO Q12H #20 tab 07/30/13 Unknown Rx Loratadine (Nf) [Claritin] 10 mg PO DAILY #30 tablet 07/30/13 Unknown Rx Promethazine /Codeine 5 ml PO Q6H PRN #150 udc 07/30/13 Unknown Rx [Phenergan/Codeine 6.25-10 mg/5 ml] Cyclobenzaprine [Flexeril] 5 mg PO TID PRN #30 tablet 08/06/13 Unknown Rx Hydrocortisone 2.5% [Hytone 2.5% 1 applicatio TP TID #1 tube 05/22/14 Unknown Rx CREAM] Loratadine (Nf) [Claritin] 10 mg PO DAILY #15 tablet 05/22/14 Unknown Rx diphenhydrAMINE [Benadryl] 25 mg PO Q6HR PRN #20 capsule 05/22/14 Unknown Rx predniSONE [Deltasone] 40 mg PO QDAY #6 tab 05/22/14 Unknown Rx Acetaminophen/Codeine 1 tab PO Q6H PRN #10 tab 10/14/14 Unknown Rx [Acetaminophen-Codeine #3 TAB] Cyclobenzaprine [Flexeril 10 MG 10 mg PO TID PRN #15 tablet 10/14/14 Unknown Rx TAB] Ibuprofen [Motrin 800 MG tab] 600 mg PO TID PRN #20 tablet 10/14/14 Unknown Rx Albuterol Sulfate [Proair 90 mcg IH Q4H PRN #1 aer.pow.ba 06/20/19 Unknown Rx Respiclick] Azithromycin [Zithromax Z-MARIBEL] 250 mg PO DAILY #4 tablet 06/20/19 Unknown Rx Benzonatate [Tessalon Perles] 100 mg PO Q8HR PRN #15 capsule 06/20/19 Unknown Rx predniSONE [Deltasone] 50 mg PO QDAY #5 tab 06/20/19 Unknown Rx Review of Systems Constitutional: fatigue, no weight loss, no weight gain, no fever, no chills Ears, nose, mouth and throat: no nasal congestion, no nasal discharge Cardiovascular: shortness of breath, dyspnea on exertion, no chest pain, no orthopnea Respiratory: cough with sputum, shortness of breath, dyspnea on exertion Gastrointestinal: nausea, no abdominal pain, no vomiting, no diarrhea Genitourinary Female: no pelvic pain, no dysuria, no urinary frequency, no urgency Musculoskeletal: no myalgias, no arthritis Integumentary: no rash, no lesions Neurological: no weakness, no numbness Psychiatric: no anxiety, no memory loss, no depression Endocrine: no cold intolerance, no heat intolerance Hematologic/Lymphatic: no easy bruising, no easy bleeding Allergic/Immunologic: no urticaria, no allergic rhinitis Exam - Constitutional Vitals: Temp Pulse Resp BP Pulse Ox 99.8 F H 89 18 120/73 95 04/13/21 08:31 04/13/21 11:29 04/13/21 11:29 04/13/21 11:29 04/13/21 11:29 General appearance: Present: mild distress, well-nourished, obese - EENT Eyes: Present: PERRL (Morbidly obese), EOM intact - Neck Neck: Present: supple, normal ROM - Respiratory Respiratory effort: normal Respiratory: bilateral: diminished, rhonchi, wheezing, negative: rales - Cardiovascular Rhythm: regular Heart Sounds: Present: S1 & S2 - Extremities Extremities: no ischemia, No edema - Abdominal General gastrointestinal: Present: soft, non-tender, non-distended, normal bowel sounds - Integumentary Integumentary: Present: clear, warm - Musculoskeletal Musculoskeletal: strength equal bilaterally - Psychiatric Psychiatric: appropriate mood/affect, cooperative - Neurologic Neurologic: CNII-XII intact, moves all extremities Results - Labs CBC & Chem 7: 04/13/21 11:30 04/13/21 11:30 Assessment and Plan -- Acute respiratory failure with hypoxia Probably due to community-acquired pneumonia Oxygen titrate O2 sats more than 90% Will rule out COVID-19 by checking [place] PCR oxygen evaluation inpatient and prior to discharge --Bilateral pneumonia[patchy] Probably community-acquired pneumonia; Empiric antibiotics Levaquin. Oxygen titrate O2 sats to more than 90% Blood cultures supportive care. As patient has bilateral pneumonia and fever We will rule out COVID-19 --Leukocytosis; due to pneumonia Treat the underlying cause Strain leukocyte count -- Suspected 2019 novel coronavirus infection PUI/high suspicion for COVID-19 Contact and droplet isolation [place] PCR test requested Oxygen titrate O2 sats more than 90% Follow gaxiola PCR test. --Hypokalemia Replenished with KCl Follow electrolytes --DVT prophylaxis Lovenox subcu --Full code status Status: Acute --Morbid obesity with BMI of 40.0-44.9, Patient need dietary modification, exercise as tolerated and weight reduction when medically stable Patient also needs pulmonary evaluation and, outpatient sleep study to evaluate for obstructive sleep apnea Recommend bariatric surgical evaluation as outpatient for weight reduction program, when medically stable Closely monitor the patient and adjust management as needed Plan of care reviewed with the patient and her nurse Consult pulmonary and ID if needed I spent total 55 minutes coordinating this admission
[2021-04-13 11:54] LABS: Bilirubin,Urine NEG (Negative); Blood,Urine MOD (Negative); Color,Urine Amber (Yellow); Mucus,Urine FEW /HPF
[2021-04-13] MEDS ORDERED: ZOLPIDEM 5 MG TAB PO ONE (11:54)
[2021-04-13] MEDS ORDERED: ALBUTEROL 8.5 GM MDI INHALATION IH PRN (11:54)
[2021-04-13 12:11] LABS: Basophils % (Auto) 0.1 % (0.0-1.8); Eosinophils % (Auto) 0.1 % (0.0-4.3); Hematocrit 40.4 % (30.3-42.9); Hemoglobin 13.8 gm/dl (10.1-14.3); Lymphocytes # (Auto) 1.3 K/mm3 (1.2-5.4); Lymphocytes % (Auto) 10.1 % (13.4-35.0); Mean Corpuscular HGB Conc 34 % (30-34); Mean Corpuscular Volume 94 fl (79-97); Monocytes % (Auto) 7.9 % (0.0-7.3); Platelet Count 162 K/mm3 (140-440); Red Blood Count 4.29 M/mm3 (3.65-5.03); Red Cell Distribution Width 13.6 % (13.2-15.2)
[2021-04-13 12:23] LABS: INR 1.23 (0.87-1.13)
[2021-04-13 12:24] LABS: Alanine Aminotransferase 10 units/L (7-56); Albumin 4.2 g/dL (3.9-5); Blood Urea Nitrogen 7 mg/dL (7-17); Calcium 9.6 mg/dL (8.4-10.2); Hemolysis Index 1; Partial Thromboplastin Time 32.2 Sec. (24.2-36.6)
[2021-04-13 12:25] LABS: BUN/Creatinine Ratio 14
[2021-04-13 12:27] LABS: C-Reactive Protein 27.7 mg/dL (0.00-1.30)
[2021-04-13] MEDS ORDERED: oxyCODONE /ACETAMINOPHEN 5-325MG TAB PO PRN ×2 (14:51→15:35)
[2021-04-13] MEDS ORDERED: ALPRAZolam 0.5 MG TAB PO PRN (14:51)
[2021-04-13] MEDS ORDERED: hydrALAZINE 20 MG/1 ML INJ IV PRN (14:51)
[2021-04-13] MEDS ORDERED: IBUPROFEN 600 MG TAB PO PRN (14:51)
[2021-04-13] MEDS ORDERED: ACETAMINOPHEN 325 MG TAB PO PRN ×2 (14:51→15:35)
[2021-04-13] MEDS ORDERED: diphenhydrAMINE 25 MG CAP PO PRN (14:51)
[2021-04-13] MEDS ORDERED: FUROSEMIDE 40 MG/4 ML INJ IV ONE (18:34)
[2021-04-13] MEDS ORDERED: ALBUTEROL 2.5 MG/3 ML NEBU IH PRN (18:40)
[2021-04-13] MEDS ORDERED: POTASSIUM CHLORIDE ER 20 MEQ TAB PO NR (19:01)
[2021-04-13] MEDS: ENOXAPARIN 40 MG/0.4 ML INJ SUB-Q SCH (19:44)
[2021-04-13] MEDS: CETIRIZINE 10 MG TAB PO SCH (19:47)
[2021-04-13] MEDS: HYDROCORTISONE 2.5% Topical CREAM 20 GM TP SCH (21:02)
[2021-04-13] MEDS: methylPREDNISolone Sod Succinate 125 MG/2 ML INJ IV SCH (21:35)
[2021-04-13] MEDS: FAMOTIDINE 20 MG TAB PO SCH (21:36)
[2021-04-14] MEDS: guaiFENesin DM 200/20 MG ORAL LIQD 10 ML PO PRN ×3 (01:23→15:47)
[2021-04-14] MEDS: methylPREDNISolone Sod Succinate 125 MG/2 ML INJ IV SCH ×3 (05:42→21:27)
[2021-04-14] MEDS: FUROSEMIDE 40 MG/4 ML INJ IV SCH (05:43)
[2021-04-14 08:54] LABS: Hematocrit 39.7 % (30.3-42.9); Hemoglobin 13.5 gm/dl (10.1-14.3); Mean Corpuscular HGB Conc 34 % (30-34); Mean Corpuscular Volume 94 fl (79-97); Platelet Count 178 K/mm3 (140-440); Red Blood Count 4.21 M/mm3 (3.65-5.03); Red Cell Distribution Width 13.4 % (13.2-15.2)
[2021-04-14 09:20] LABS: Alanine Aminotransferase 12 units/L (7-56); Albumin 4.3 g/dL (3.9-5); Blood Urea Nitrogen 10 mg/dL (7-17); Calcium 9.2 mg/dL (8.4-10.2); Hemolysis Index 0
[2021-04-14 09:21] LABS: BUN/Creatinine Ratio 20
[2021-04-14] MEDS: CETIRIZINE 10 MG TAB PO SCH (09:41)
[2021-04-14] MEDS: FAMOTIDINE 20 MG TAB PO SCH ×2 (09:41→21:27)
[2021-04-14] MEDS: ENOXAPARIN 40 MG/0.4 ML INJ SUB-Q SCH (09:42)
--- NOTE | 2021-04-14 09:42 | Electrocardiograph Report ---
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 Electronically Signed On 04-14-2021 9:41:41 EDT by Ranjith Massey
[2021-04-14 10:37] LABS: Total Cells Counted 100
[2021-04-14 10:40] LABS: Platelet Estimate Consistent w Auto
[2021-04-14 10:45] LABS: Giant Platelets Few
[2021-04-14 14:15] LABS: RBC Morphology Normal
[2021-04-14] MEDS: HYDROCORTISONE 2.5% Topical CREAM 20 GM TP SCH ×3 (14:15→21:26)
[2021-04-14] MEDS ORDERED: POTASSIUM CHLORIDE ER 20 MEQ TAB PO NR (19:00)
--- NOTE | 2021-04-14 19:01 | Progress Note ---
Assessment and Plan Assessment and plan: --COVID-19 test negative --Bilateral pneumonia[patchy] Probably community-acquired pneumonia; Empiric antibiotics Levaquin. Oxygen titrate O2 sats to more than 90% Blood cultures supportive care. As patient has bilateral pneumonia and fever We will rule out COVID-19 -- Acute respiratory failure with hypoxia Probably due to community-acquired pneumonia Oxygen titrate O2 sats more than 90% Will rule out COVID-19 by checking [place] PCR oxygen evaluation inpatient and prior to discharge --Leukocytosis; due to pneumonia Treat the underlying cause Strain leukocyte count -- COVID-19 test negative DC isolation --Hypokalemia Replenished with KCl Follow electrolytes --DVT prophylaxis Lovenox subcu --Full code status Status: Acute --Morbid obesity with BMI of 40.0-44.9, Patient need dietary modification, exercise as tolerated and weight reduction when medically stable Patient also needs pulmonary evaluation and, outpatient sleep study to evaluate for obstructive sleep apnea Recommend bariatric surgical evaluation as outpatient for weight reduction program, when medically stable Patient's COVID-19 test is negative, DC isolation We will monitor the patient and adjust the management as needed Plan of care reviewed with the patient and her nurse History Interval history: I have seen and examined the patient at the bedside Patient chart and medications reviewed Patient feels slightly better Still has bilateral wheeze and shortness of breath Vital signs noted Hospitalist Physical - Constitutional Vitals: Temp Pulse Resp BP Pulse Ox 98.4 F 91 H 20 146/90 92 04/14/21 16:36 04/14/21 16:36 04/14/21 16:36 04/14/21 16:36 04/14/21 16:36 General appearance: Present: mild distress, well-nourished, obese - EENT Eyes: Present: PERRL, EOM intact - Neck Neck: Present: supple, normal ROM - Respiratory Respiratory effort: normal Respiratory: bilateral: diminished, rhonchi, negative: rales, wheezing - Cardiovascular Rhythm: regular Heart Sounds: Present: S1 & S2 - Extremities Extremities: no ischemia, No edema - Abdominal General gastrointestinal: soft, non-tender, non-distended, normal bowel sounds - Integumentary Integumentary: Present: clear, warm - Psychiatric Psychiatric: appropriate mood/affect, cooperative - Neurologic Neurologic: CNII-XII intact, moves all extremities HEART Score - HEART Score Troponin: Troponin T < 0.010 ng/mL (0.00-0.029) 04/13/21 11:30 Results - Labs CBC & Chem 7: 04/14/21 07:57 04/14/21 07:57 Labs: Laboratory Last Values WBC 16.4 K/mm3 (4.5-11.0) H 04/14/21 07:57 RBC 4.21 M/mm3 (3.65-5.03) 04/14/21 07:57 Hgb 13.5 gm/dl (10.1-14.3) 04/14/21 07:57 Hct 39.7 % (30.3-42.9) 04/14/21 07:57 MCV 94 fl (79-97) 04/14/21 07:57 MCH 32 pg (28-32) 04/14/21 07:57 MCHC 34 % (30-34) 04/14/21 07:57 RDW 13.4 % (13.2-15.2) 04/14/21 07:57 Plt Count 178 K/mm3 (140-440) 04/14/21 07:57 Lymph % (Auto) 10.1 % (13.4-35.0) L 04/13/21 11:30 [place] % (Auto) 7.9 % (0.0-7.3) H 04/13/21 11:30 Eos % (Auto) 0.1 % (0.0-4.3) 04/13/21 11:30 Baso % (Auto) 0.1 % (0.0-1.8) 04/13/21 11:30 Lymph # (Auto) 1.3 K/mm3 (1.2-5.4) 04/13/21 11:30 [place] # (Auto) 1.0 K/mm3 (0.0-0.8) H 04/13/21 11:30 Eos # (Auto) 0.0 K/mm3 (0.0-0.4) 04/13/21 11:30 Baso # (Auto) 0.0 K/mm3 (0.0-0.1) 04/13/21 11:30 Add Manual Diff Complete 04/14/21 07:57 Total Counted 100 04/14/21 07:57 Seg Neutrophils % Local Flatbed Driver 04/14/21 07:57 Seg Neuts % (Manual) 95.0 % (40.0-70.0) H 04/14/21 07:57 Lymphocytes % (Manual) 5.0 % (13.4-35.0) L 04/14/21 07:57 Nucleated RBC % 0.0 % (0.0-0.9) 04/14/21 07:57 Seg Neutrophils # 10.9 K/mm3 (1.8-7.7) H 04/13/21 11:30 Seg Neutrophils # Man 15.6 K/mm3 (1.8-7.7) H 04/14/21 07:57 Band Neutrophils # 0.0 K/mm3 04/14/21 07:57 Lymphocytes # (Manual) 0.8 K/mm3 (1.2-5.4) L 04/14/21 07:57 Abs React Lymphs (Man) 0.0 K/mm3 04/14/21 07:57 Monocytes # (Manual) 0.0 K/mm3 (0.0-0.8) 04/14/21 07:57 Eosinophils # (Manual) 0.0 K/mm3 (0.0-0.4) 04/14/21 07:57 Basophils # (Manual) 0.0 K/mm3 (0.0-0.1) 04/14/21 07:57 Metamyelocytes # 0.0 K/mm3 04/14/21 07:57 Myelocytes # 0.0 K/mm3 04/14/21 07:57 Promyelocytes # 0.0 K/mm3 04/14/21 07:57 Blast Cells # 0.0 K/mm3 04/14/21 07:57 WBC Morphology Not Reportable 04/14/21 07:57 Hypersegmented Neuts Not Reportable 04/14/21 07:57 Hyposegmented Neuts Not Reportable 04/14/21 07:57 Hypogranular Neuts Not Reportable 04/14/21 07:57 Smudge Cells Not Reportable 04/14/21 07:57 Toxic Granulation Not Reportable 04/14/21 07:57 Toxic Vacuolation Not Reportable 04/14/21 07:57 Dohle Bodies Not Reportable 04/14/21 07:57 Pelger-Huet Anomaly Not Reportable 04/14/21 07:57 Manuel Rods Not Reportable 04/14/21 07:57 Platelet Estimate Consistent w auto 04/14/21 07:57 Clumped Platelets Not Reportable 04/14/21 07:57 Plt Clumps, EDTA Not Reportable 04/14/21 07:57 Large Platelets Not Reportable 04/14/21 07:57 Giant Platelets Few 04/14/21 07:57 Platelet Satelliting Not Reportable 04/14/21 07:57 Plt Morphology Comment Not Reportable 04/14/21 07:57 RBC Morphology Normal 04/14/21 07:57 Dimorphic RBCs Not Reportable 04/14/21 07:57 Polychromasia Not Reportable 04/14/21 07:57 Hypochromasia Not Reportable 04/14/21 07:57 Poikilocytosis Not Reportable 04/14/21 07:57 Anisocytosis Not Reportable 04/14/21 07:57 Microcytosis Not Reportable 04/14/21 07:57 Macrocytosis Not Reportable 04/14/21 07:57 Spherocytes Not Reportable 04/14/21 07:57 Pappenheimer Bodies Not Reportable 04/14/21 07:57 Sickle Cells Not Reportable 04/14/21 07:57 Target Cells Not Reportable 04/14/21 07:57 Tear Drop Cells Not Reportable 04/14/21 07:57 Ovalocytes Not Reportable 04/14/21 07:57 Helmet Cells Not Reportable 04/14/21 07:57 [place] Bodies Not Reportable 04/14/21 07:57 [place] Rings Not Reportable 04/14/21 07:57 Mikayla Cells Not Reportable 04/14/21 07:57 Bite Cells Not Reportable 04/14/21 07:57 Crenated Cell Not Reportable 04/14/21 07:57 Elliptocytes Not Reportable 04/14/21 07:57 Acanthocytes (Spur) Not Reportable 04/14/21 07:57 Rouleaux Not Reportable 04/14/21 07:57 Hemoglobin C Crystals Not Reportable 04/14/21 07:57 Schistocytes Not Reportable 04/14/21 07:57 Malaria parasites Not Reportable 04/14/21 07:57 Phillip Bodies Not Reportable 04/14/21 07:57 Hem Pathologist Commnt No 04/14/21 07:57 PT 16.0 Sec. (12.2-14.9) H 04/13/21 11:30 INR 1.23 (0.87-1.13) H 04/13/21 11:30 APTT 32.2 Sec. (24.2-36.6) 04/13/21 11:30 D-Dimer 289.64 ng/mlDDU (0-234) H 04/13/21 11:30 Sodium 140 mmol/L (137-145) 04/14/21 07:57 Potassium 3.4 mmol/L (3.6-5.0) L 04/14/21 07:57 Chloride 99.0 mmol/L (98-107) 04/14/21 07:57 Carbon Dioxide 24 mmol/L (22-30) 04/14/21 07:57 Anion Gap 20 mmol/L 04/14/21 07:57 BUN 10 mg/dL (7-17) 04/14/21 07:57 Creatinine 0.5 mg/dL (0.6-1.2) L 04/14/21 07:57 Estimated GFR > 60 ml/min 04/14/21 07:57 BUN/Creatinine Ratio 20 % 04/14/21 07:57 Glucose 159 mg/dL (65-100) H 04/14/21 07:57 Lactic Acid 0.90 mmol/L (0.7-2.0) 04/13/21 11:30 Calcium 9.2 mg/dL (8.4-10.2) 04/14/21 07:57 Magnesium 1.90 mg/dL (1.7-2.3) 04/14/21 07:57 Ferritin 379.8 ng/mL (10.0-200.0) H 04/13/21 11:30 Total Bilirubin 0.60 mg/dL (0.1-1.2) 04/14/21 07:57 AST 16 units/L (5-40) 04/14/21 07:57 ALT 12 units/L (7-56) 04/14/21 07:57 Alkaline Phosphatase 76 units/L (35-129) 04/14/21 07:57 Lactate Dehydrogenase 264 units/L (91-180) H 04/13/21 11:30 Total Creatine Kinase 83 units/L (30-135) 04/13/21 11:30 Troponin T < 0.010 ng/mL (0.00-0.029) 04/13/21 11:30 C-Reactive Protein 27.70 mg/dL (0.00-1.30) H 04/13/21 11:30 Total Protein 7.4 g/dL (6.3-8.2) 04/14/21 07:57 Albumin 4.3 g/dL (3.9-5) 04/14/21 07:57 Albumin/Globulin Ratio 1.4 % 04/14/21 07:57 Procalcitonin 0.32 ng/mL (<0.15) 04/13/21 11:30 Urine Color Ana (Yellow) 04/13/21 Unknown Urine Turbidity Slightly-cloudy (Clear) 04/13/21 Unknown Urine pH 5.0 (5.0-7.0) 04/13/21 Unknown Ur Specific [place] 1.027 (1.003-1.030) 04/13/21 Unknown Urine Protein 100 mg/dl mg/dL (Negative) 04/13/21 Unknown Urine Glucose (UA) 50 mg/dL (Negative) 04/13/21 Unknown Urine Ketones 20 mg/dL (Negative) 04/13/21 Unknown Urine Blood Mod (Negative) 04/13/21 Unknown Urine Nitrite Neg (Negative) 04/13/21 Unknown Urine Bilirubin Neg (Negative) 04/13/21 Unknown Urine Urobilinogen 4.0 mg/dL (<2.0) 04/13/21 Unknown Ur Leukocyte Esterase Neg (Negative) 04/13/21 Unknown Urine WBC (Auto) 4.0 /HPF (0.0-6.0) 04/13/21 Unknown Urine RBC (Auto) 14.0 /HPF (0.0-6.0) 04/13/21 Unknown U Epithel Cells (Auto) 7.0 /HPF (0-13.0) 04/13/21 Unknown Urine Mucus Few /HPF 04/13/21 Unknown Coronavirus (PCR) Negative (Negative) 04/13/21 Unknown Microbiology: Microbiology 04/13/21 11:30 Peripheral/Venous Blood Culture - Preliminary NO GROWTH AFTER 24 HOURS 04/13/21 11:30 Peripheral/Venous Blood Culture - Preliminary NO GROWTH AFTER 24 HOURS Thomas/IV: Voiding Method Toilet Active Medications - Current Medications Current Medications: Generic Name Dose Route Start Last Admin Trade Name Freq PRN Reason Stop Dose Admin Acetaminophen 650 mg 04/13/21 15:35 Acetaminophen 325 Mg Tab PO Q4H PRN Pain MILD(1-3)/Fever >100.5/ALCAZAR Albuterol 2.5 mg 04/13/21 18:40 04/14/21 12:15 Albuterol 2.5 Mg/3 Ml Nebu IH 04/16/21 18:39 2.5 mg Q6HRT PRN Administration Agitation Alprazolam 0.5 mg 04/13/21 14:51 Alprazolam 0.5 Mg Tab PO BID PRN Anxiety Cetirizine HCl 10 mg 04/13/21 19:00 04/14/21 09:41 Cetirizine 10 Mg Tab PO 10 mg QDAY ROGELIO Administration Diphenhydramine HCl 25 mg 04/13/21 14:51 Diphenhydramine 25 Mg Cap PO Q6HR PRN Itching Docusate Sodium 100 mg 04/13/21 14:51 Docusate Sodium 100 Mg Cap PO BID PRN Constipation Enoxaparin Sodium 40 mg 04/13/21 18:00 04/14/21 09:42 Enoxaparin 40 Mg/0.4 Ml Inj SUB-Q 40 mg QDAY ROGELIO Administration Famotidine 20 mg 04/13/21 22:00 04/14/21 09:41 Famotidine 20 Mg Tab PO 20 mg BID ROGELIO Administration Furosemide 40 mg 04/14/21 06:00 04/14/21 05:43 Furosemide 40 Mg/4 Ml Inj IV 40 mg DAILY@0600 ROGELIO Administration Guaifenesin 10 ml 04/13/21 14:51 04/14/21 15:47 Guaifenesin Dm 200/20 Mg Oral Liqd 10 Ml PO 10 ml Q4H PRN Administration Cough Hydralazine HCl 10 mg 04/13/21 14:51 Hydralazine 20 Mg/1 Ml Inj IV Q4HR PRN Hypertension Hydrocortisone Acetate 1 applic 04/13/21 14:51 04/14/21 14:16 Hydrocortisone 2.5% Topical Cream 20 Gm TP Not Given TID ROGELIO Levofloxacin/Dextrose 750 mg in 150 mls @ 100 mls/hr 04/13/21 15:00 04/14/21 14:32 Levaquin 750mg/150ml IV 100 mls/hr Q24H ROGELIO Administration Protocol Methylprednisolone Sodium Succinate 60 mg 04/13/21 22:00 04/14/21 14:32 Methylprednisolone Sod Succinate 125 Mg/2 Ml Inj IV 60 mg Q8HR RGOELIO Administration Sodium Chloride 10 ml 04/13/21 22:00 04/14/21 09:51 Sodium Chloride 0.9% 10 Ml Flush Syringe IV 10 ml BID ROGELIO Administration Sodium Chloride 10 ml 04/13/21 14:51 Sodium Chloride 0.9% 10 Ml Flush Syringe IV PRN PRN LINE FLUSH
--- NOTE | 2021-04-14 19:43 | Progress Note ---
Assessment and Plan Assessment and plan: --COVID-19 test negative --Bilateral pneumonia[patchy] Probably community-acquired pneumonia; Empiric antibiotics Levaquin. Oxygen titrate O2 sats to more than 90% Blood cultures supportive care. As patient has bilateral pneumonia and fever We will rule out COVID-19 -- Acute respiratory failure with hypoxia Probably due to community-acquired pneumonia Oxygen titrate O2 sats more than 90% Will rule out COVID-19 by checking [place] PCR oxygen evaluation inpatient and prior to discharge --Leukocytosis; due to pneumonia Treat the underlying cause Strain leukocyte count -- COVID-19 test negative DC isolation --Hypokalemia Replenished with KCl Follow electrolytes --DVT prophylaxis Lovenox subcu --Full code status Status: Acute --Morbid obesity with BMI of 40.0-44.9, Patient need dietary modification, exercise as tolerated and weight reduction when medically stable Patient also needs pulmonary evaluation and, outpatient sleep study to evaluate for obstructive sleep apnea Recommend bariatric surgical evaluation as outpatient for weight reduction program, when medically stable Patient's COVID-19 test is negative, DC isolation We will monitor the patient and adjust the management as needed Plan of care reviewed with the patient and her nurse History Interval history: I seen and examined the patient at the bedside Patient's chart and medications reviewed Patient feels slightly better Still has significant shortness of breath and cough Vital signs noted Hospitalist Physical - Constitutional Vitals: Temp Pulse Resp BP Pulse Ox 98.4 F 91 H 20 146/90 92 04/14/21 16:36 04/14/21 16:36 04/14/21 16:36 04/14/21 16:36 04/14/21 16:36 General appearance: Present: mild distress, well-nourished, obese - EENT Eyes: Present: PERRL, EOM intact - Neck Neck: Present: supple, normal ROM - Respiratory Respiratory effort: normal Respiratory: bilateral: diminished, rhonchi, negative: rales, wheezing - Cardiovascular Rhythm: regular Heart Sounds: Present: S1 & S2 - Extremities Extremities: no ischemia, No edema - Abdominal General gastrointestinal: soft, non-tender, non-distended, normal bowel sounds - Integumentary Integumentary: Present: clear, warm - Psychiatric Psychiatric: appropriate mood/affect, cooperative - Neurologic Neurologic: CNII-XII intact, moves all extremities HEART Score - HEART Score Troponin: Troponin T < 0.010 ng/mL (0.00-0.029) 04/13/21 11:30 Results - Labs CBC & Chem 7: 04/14/21 07:57 04/14/21 07:57 Labs: Laboratory Last Values WBC 16.4 K/mm3 (4.5-11.0) H 04/14/21 07:57 RBC 4.21 M/mm3 (3.65-5.03) 04/14/21 07:57 Hgb 13.5 gm/dl (10.1-14.3) 04/14/21 07:57 Hct 39.7 % (30.3-42.9) 04/14/21 07:57 MCV 94 fl (79-97) 04/14/21 07:57 MCH 32 pg (28-32) 04/14/21 07:57 MCHC 34 % (30-34) 04/14/21 07:57 RDW 13.4 % (13.2-15.2) 04/14/21 07:57 Plt Count 178 K/mm3 (140-440) 04/14/21 07:57 Lymph % (Auto) 10.1 % (13.4-35.0) L 04/13/21 11:30 [place] % (Auto) 7.9 % (0.0-7.3) H 04/13/21 11:30 Eos % (Auto) 0.1 % (0.0-4.3) 04/13/21 11:30 Baso % (Auto) 0.1 % (0.0-1.8) 04/13/21 11:30 Lymph # (Auto) 1.3 K/mm3 (1.2-5.4) 04/13/21 11:30 [place] # (Auto) 1.0 K/mm3 (0.0-0.8) H 04/13/21 11:30 Eos # (Auto) 0.0 K/mm3 (0.0-0.4) 04/13/21 11:30 Baso # (Auto) 0.0 K/mm3 (0.0-0.1) 04/13/21 11:30 Add Manual Diff Complete 04/14/21 07:57 Total Counted 100 04/14/21 07:57 Seg Neutrophils % [place] Super[employer] 04/14/21 07:57 Seg Neuts % (Manual) 95.0 % (40.0-70.0) H 04/14/21 07:57 Lymphocytes % (Manual) 5.0 % (13.4-35.0) L 04/14/21 07:57 Nucleated RBC % 0.0 % (0.0-0.9) 04/14/21 07:57 Seg Neutrophils # 10.9 K/mm3 (1.8-7.7) H 04/13/21 11:30 Seg Neutrophils # Man 15.6 K/mm3 (1.8-7.7) H 04/14/21 07:57 Band Neutrophils # 0.0 K/mm3 04/14/21 07:57 Lymphocytes # (Manual) 0.8 K/mm3 (1.2-5.4) L 04/14/21 07:57 Abs React Lymphs (Man) 0.0 K/mm3 04/14/21 07:57 Monocytes # (Manual) 0.0 K/mm3 (0.0-0.8) 04/14/21 07:57 Eosinophils # (Manual) 0.0 K/mm3 (0.0-0.4) 04/14/21 07:57 Basophils # (Manual) 0.0 K/mm3 (0.0-0.1) 04/14/21 07:57 Metamyelocytes # 0.0 K/mm3 04/14/21 07:57 Myelocytes # 0.0 K/mm3 04/14/21 07:57 Promyelocytes # 0.0 K/mm3 04/14/21 07:57 Blast Cells # 0.0 K/mm3 04/14/21 07:57 WBC Morphology Not Reportable 04/14/21 07:57 Hypersegmented Neuts Not Reportable 04/14/21 07:57 Hyposegmented Neuts Not Reportable 04/14/21 07:57 Hypogranular Neuts Not Reportable 04/14/21 07:57 Smudge Cells Not Reportable 04/14/21 07:57 Toxic Granulation Not Reportable 04/14/21 07:57 Toxic Vacuolation Not Reportable 04/14/21 07:57 Dohle Bodies Not Reportable 04/14/21 07:57 Pelger-Huet Anomaly Not Reportable 04/14/21 07:57 Manuel Rods Not Reportable 04/14/21 07:57 Platelet Estimate Consistent w auto 04/14/21 07:57 Clumped Platelets Not Reportable 04/14/21 07:57 Plt Clumps, EDTA Not Reportable 04/14/21 07:57 Large Platelets Not Reportable 04/14/21 07:57 Giant Platelets Few 04/14/21 07:57 Platelet Satelliting Not Reportable 04/14/21 07:57 Plt Morphology Comment Not Reportable 04/14/21 07:57 RBC Morphology Normal 04/14/21 07:57 Dimorphic RBCs Not Reportable 04/14/21 07:57 Polychromasia Not Reportable 04/14/21 07:57 Hypochromasia Not Reportable 04/14/21 07:57 Poikilocytosis Not Reportable 04/14/21 07:57 Anisocytosis Not Reportable 04/14/21 07:57 Microcytosis Not Reportable 04/14/21 07:57 Macrocytosis Not Reportable 04/14/21 07:57 Spherocytes Not Reportable 04/14/21 07:57 Pappenheimer Bodies Not Reportable 04/14/21 07:57 Sickle Cells Not Reportable 04/14/21 07:57 Target Cells Not Reportable 04/14/21 07:57 Tear Drop Cells Not Reportable 04/14/21 07:57 Ovalocytes Not Reportable 04/14/21 07:57 Helmet Cells Not Reportable 04/14/21 07:57 [place] Bodies Not Reportable 04/14/21 07:57 [place] Rings Not Reportable 04/14/21 07:57 Mikayla Cells Not Reportable 04/14/21 07:57 Bite Cells Not Reportable 04/14/21 07:57 Crenated Cell Not Reportable 04/14/21 07:57 Elliptocytes Not Reportable 04/14/21 07:57 Acanthocytes (Spur) Not Reportable 04/14/21 07:57 Rouleaux Not Reportable 04/14/21 07:57 Hemoglobin C Crystals Not Reportable 04/14/21 07:57 Schistocytes Not Reportable 04/14/21 07:57 Malaria parasites Not Reportable 04/14/21 07:57 Phillip Bodies Not Reportable 04/14/21 07:57 Hem Pathologist Commnt No 04/14/21 07:57 PT 16.0 Sec. (12.2-14.9) H 04/13/21 11:30 INR 1.23 (0.87-1.13) H 04/13/21 11:30 APTT 32.2 Sec. (24.2-36.6) 04/13/21 11:30 D-Dimer 289.64 ng/mlDDU (0-234) H 04/13/21 11:30 Sodium 140 mmol/L (137-145) 04/14/21 07:57 Potassium 3.4 mmol/L (3.6-5.0) L 04/14/21 07:57 Chloride 99.0 mmol/L (98-107) 04/14/21 07:57 Carbon Dioxide 24 mmol/L (22-30) 04/14/21 07:57 Anion Gap 20 mmol/L 04/14/21 07:57 BUN 10 mg/dL (7-17) 04/14/21 07:57 Creatinine 0.5 mg/dL (0.6-1.2) L 04/14/21 07:57 Estimated GFR > 60 ml/min 04/14/21 07:57 BUN/Creatinine Ratio 20 % 04/14/21 07:57 Glucose 159 mg/dL (65-100) H 04/14/21 07:57 Lactic Acid 0.90 mmol/L (0.7-2.0) 04/13/21 11:30 Calcium 9.2 mg/dL (8.4-10.2) 04/14/21 07:57 Magnesium 1.90 mg/dL (1.7-2.3) 04/14/21 07:57 Ferritin 379.8 ng/mL (10.0-200.0) H 04/13/21 11:30 Total Bilirubin 0.60 mg/dL (0.1-1.2) 04/14/21 07:57 AST 16 units/L (5-40) 04/14/21 07:57 ALT 12 units/L (7-56) 04/14/21 07:57 Alkaline Phosphatase 76 units/L (35-129) 04/14/21 07:57 Lactate Dehydrogenase 264 units/L (91-180) H 04/13/21 11:30 Total Creatine Kinase 83 units/L (30-135) 04/13/21 11:30 Troponin T < 0.010 ng/mL (0.00-0.029) 04/13/21 11:30 C-Reactive Protein 27.70 mg/dL (0.00-1.30) H 04/13/21 11:30 Total Protein 7.4 g/dL (6.3-8.2) 04/14/21 07:57 Albumin 4.3 g/dL (3.9-5) 04/14/21 07:57 Albumin/Globulin Ratio 1.4 % 04/14/21 07:57 Procalcitonin 0.32 ng/mL (<0.15) 04/13/21 11:30 Urine Color Ana (Yellow) 04/13/21 Unknown Urine Turbidity Slightly-cloudy (Clear) 04/13/21 Unknown Urine pH 5.0 (5.0-7.0) 04/13/21 Unknown Ur Specific [place] 1.027 (1.003-1.030) 04/13/21 Unknown Urine Protein 100 mg/dl mg/dL (Negative) 04/13/21 Unknown Urine Glucose (UA) 50 mg/dL (Negative) 04/13/21 Unknown Urine Ketones 20 mg/dL (Negative) 04/13/21 Unknown Urine Blood Mod (Negative) 04/13/21 Unknown Urine Nitrite Neg (Negative) 04/13/21 Unknown Urine Bilirubin Neg (Negative) 04/13/21 Unknown Urine Urobilinogen 4.0 mg/dL (<2.0) 04/13/21 Unknown Ur Leukocyte Esterase Neg (Negative) 04/13/21 Unknown Urine WBC (Auto) 4.0 /HPF (0.0-6.0) 04/13/21 Unknown Urine RBC (Auto) 14.0 /HPF (0.0-6.0) 04/13/21 Unknown U Epithel Cells (Auto) 7.0 /HPF (0-13.0) 04/13/21 Unknown Urine Mucus Few /HPF 04/13/21 Unknown Coronavirus (PCR) Negative (Negative) 04/13/21 Unknown Microbiology: Microbiology 04/13/21 11:30 Peripheral/Venous Blood Culture - Preliminary NO GROWTH AFTER 24 HOURS 04/13/21 11:30 Peripheral/Venous Blood Culture - Preliminary NO GROWTH AFTER 24 HOURS Thomas/IV: Voiding Method Toilet Active Medications - Current Medications Current Medications: Generic Name Dose Route Start Last Admin Trade Name Freq PRN Reason Stop Dose Admin Acetaminophen 650 mg 04/13/21 15:35 Acetaminophen 325 Mg Tab PO Q4H PRN Pain MILD(1-3)/Fever >100.5/ALCAZAR Albuterol 2.5 mg 04/13/21 18:40 04/14/21 12:15 Albuterol 2.5 Mg/3 Ml Nebu IH 04/16/21 18:39 2.5 mg Q6HRT PRN Administration Agitation Alprazolam 0.5 mg 04/13/21 14:51 Alprazolam 0.5 Mg Tab PO BID PRN Anxiety Cetirizine HCl 10 mg 04/13/21 19:00 04/14/21 09:41 Cetirizine 10 Mg Tab PO 10 mg QDAY ROGELIO Administration Diphenhydramine HCl 25 mg 04/13/21 14:51 Diphenhydramine 25 Mg Cap PO Q6HR PRN Itching Docusate Sodium 100 mg 04/13/21 14:51 Docusate Sodium 100 Mg Cap PO BID PRN Constipation Enoxaparin Sodium 40 mg 04/13/21 18:00 04/14/21 09:42 Enoxaparin 40 Mg/0.4 Ml Inj SUB-Q 40 mg QDAY ROGELIO Administration Famotidine 20 mg 04/13/21 22:00 04/14/21 09:41 Famotidine 20 Mg Tab PO 20 mg BID ROGELIO Administration Furosemide 40 mg 04/14/21 06:00 04/14/21 05:43 Furosemide 40 Mg/4 Ml Inj IV 40 mg DAILY@0600 ROGELIO Administration Guaifenesin 10 ml 04/13/21 14:51 04/14/21 15:47 Guaifenesin Dm 200/20 Mg Oral Liqd 10 Ml PO 10 ml Q4H PRN Administration Cough Hydralazine HCl 10 mg 04/13/21 14:51 Hydralazine 20 Mg/1 Ml Inj IV Q4HR PRN Hypertension Hydrocortisone Acetate 1 applic 04/13/21 14:51 04/14/21 14:16 Hydrocortisone 2.5% Topical Cream 20 Gm TP Not Given TID ROGELIO Levofloxacin/Dextrose 750 mg in 150 mls @ 100 mls/hr 04/13/21 15:00 04/14/21 14:32 Levaquin 750mg/150ml IV 100 mls/hr Q24H ROGELIO Administration Protocol Methylprednisolone Sodium Succinate 60 mg 04/13/21 22:00 04/14/21 14:32 Methylprednisolone Sod Succinate 125 Mg/2 Ml Inj IV 60 mg Q8HR ROGELIO Administration Potassium Chloride 40 meq 04/14/21 19:00 Potassium Chloride Er 20 Meq Tab PO 04/14/21 23:00 ONCE NR Sodium Chloride 10 ml 04/13/21 22:00 04/14/21 09:51 Sodium Chloride 0.9% 10 Ml Flush Syringe IV 10 ml BID ROGELIO Administration Sodium Chloride 10 ml 04/13/21 14:51 Sodium Chloride 0.9% 10 Ml Flush Syringe IV PRN PRN LINE FLUSH
[2021-04-15] MEDS: guaiFENesin DM 200/20 MG ORAL LIQD 10 ML PO PRN ×4 (05:07→21:30)
[2021-04-15] MEDS: methylPREDNISolone Sod Succinate 125 MG/2 ML INJ IV SCH ×3 (05:08→21:31)
[2021-04-15] MEDS: FUROSEMIDE 40 MG/4 ML INJ IV SCH (05:14)
[2021-04-15] MEDS: HYDROCORTISONE 2.5% Topical CREAM 20 GM TP SCH ×3 (08:05→21:34)
[2021-04-15] MEDS: ENOXAPARIN 40 MG/0.4 ML INJ SUB-Q SCH ×2 (08:53→14:56)
[2021-04-15] MEDS: FAMOTIDINE 20 MG TAB PO SCH ×3 (08:53→21:31)
[2021-04-15] MEDS: CETIRIZINE 10 MG TAB PO SCH ×2 (08:53→14:56)
[2021-04-15] MEDS: levoFLOXacin 750 MG TAB PO SCH (14:59)
[2021-04-16] MEDS: guaiFENesin DM 200/20 MG ORAL LIQD 10 ML PO PRN ×2 (05:37→22:55)
[2021-04-16] MEDS: FUROSEMIDE 40 MG/4 ML INJ IV SCH (05:37)
[2021-04-16] MEDS: methylPREDNISolone Sod Succinate 125 MG/2 ML INJ IV SCH ×3 (05:38→22:55)
--- NOTE | 2021-04-16 08:41 | Progress Note ---
Assessment and Plan Assessment and plan: --COVID-19 test negative --Bilateral pneumonia[patchy] Probably community-acquired pneumonia; Empiric antibiotics Levaquin. Oxygen titrate O2 sats to more than 90% Blood cultures supportive care. As patient has bilateral pneumonia and fever We will rule out COVID-19 We will request for chest x-ray today to monitor improvement -- Acute respiratory failure with hypoxia Probably due to community-acquired pneumonia Oxygen titrate O2 sats more than 90% Will rule out COVID-19 by checking [place] PCR oxygen evaluation inpatient and prior to discharge --Leukocytosis; due to pneumonia, partly due to steroid use Treat the underlying cause Trend leukocyte count -- COVID-19 test negative DC isolation --Hypokalemia Replenished with KCl Follow electrolytes --DVT prophylaxis Lovenox subcu --Full code status Status: Acute --Morbid obesity with BMI of 40.0-44.9, Patient need dietary modification, exercise as tolerated and weight reduction when medically stable Patient also needs pulmonary evaluation and, outpatient sleep study to evaluate for obstructive sleep apnea Recommend bariatric surgical evaluation as outpatient for weight reduction program, when medically stable Patient's COVID-19 test is negative, DC isolation We will monitor the patient and adjust the management as needed Plan of care reviewed with the patient and her nurse Possible discharge later this evening or first thing in the morning if stable 04/16/2021; patient feels better Follow-up chest x-ray to monitor improvement of pneumonia Patient denies chest pain or shortness of breath Ambulating tolerating Possible discharge late this evening or first in the morning if stable History Interval history: I have seen and examined the patient at the bedside this morning Patient's chart and medications reviewed No new events reported Feels better, had mild episode of chest pain resolved Denies any chest pain or shortness of breath this morning Vital signs noted Hospitalist Physical - Constitutional Vitals: Temp Pulse Resp BP Pulse Ox 98.1 F 73 20 147/77 89 04/16/21 04:31 04/16/21 04:31 04/16/21 04:31 04/16/21 04:31 04/16/21 04:31 General appearance: Present: mild distress, well-nourished, obese - EENT Eyes: Present: PERRL, EOM intact - Neck Neck: Present: supple, normal ROM - Respiratory Respiratory effort: normal Respiratory: bilateral: diminished, negative: rales, rhonchi, wheezing - Cardiovascular Rhythm: regular Heart Sounds: Present: S1 & S2 - Extremities Extremities: no ischemia, No edema - Abdominal General gastrointestinal: soft, non-tender, non-distended, normal bowel sounds - Integumentary Integumentary: Present: clear, warm - Psychiatric Psychiatric: appropriate mood/affect, cooperative - Neurologic Neurologic: CNII-XII intact, moves all extremities HEART Score - HEART Score Troponin: Troponin T < 0.010 ng/mL (0.00-0.029) 04/13/21 11:30 Results - Labs CBC & Chem 7: 04/16/21 09:01 04/16/21 09:01 Labs: Laboratory Last Values WBC 16.4 K/mm3 (4.5-11.0) H 04/14/21 07:57 RBC 4.21 M/mm3 (3.65-5.03) 04/14/21 07:57 Hgb 13.5 gm/dl (10.1-14.3) 04/14/21 07:57 Hct 39.7 % (30.3-42.9) 04/14/21 07:57 MCV 94 fl (79-97) 04/14/21 07:57 MCH 32 pg (28-32) 04/14/21 07:57 MCHC 34 % (30-34) 04/14/21 07:57 RDW 13.4 % (13.2-15.2) 04/14/21 07:57 Plt Count 178 K/mm3 (140-440) 04/14/21 07:57 Lymph % (Auto) 10.1 % (13.4-35.0) L 04/13/21 11:30 [place] % (Auto) 7.9 % (0.0-7.3) H 04/13/21 11:30 Eos % (Auto) 0.1 % (0.0-4.3) 04/13/21 11:30 Baso % (Auto) 0.1 % (0.0-1.8) 04/13/21 11:30 Lymph # (Auto) 1.3 K/mm3 (1.2-5.4) 04/13/21 11:30 [place] # (Auto) 1.0 K/mm3 (0.0-0.8) H 04/13/21 11:30 Eos # (Auto) 0.0 K/mm3 (0.0-0.4) 04/13/21 11:30 Baso # (Auto) 0.0 K/mm3 (0.0-0.1) 04/13/21 11:30 Add Manual Diff Complete 04/14/21 07:57 Total Counted 100 04/14/21 07:57 Seg Neutrophils % Equipment Operat0R 04/14/21 07:57 Seg Neuts % (Manual) 95.0 % (40.0-70.0) H 04/14/21 07:57 Lymphocytes % (Manual) 5.0 % (13.4-35.0) L 04/14/21 07:57 Nucleated RBC % 0.0 % (0.0-0.9) 04/14/21 07:57 Seg Neutrophils # 10.9 K/mm3 (1.8-7.7) H 04/13/21 11:30 Seg Neutrophils # Man 15.6 K/mm3 (1.8-7.7) H 04/14/21 07:57 Band Neutrophils # 0.0 K/mm3 04/14/21 07:57 Lymphocytes # (Manual) 0.8 K/mm3 (1.2-5.4) L 04/14/21 07:57 Abs React Lymphs (Man) 0.0 K/mm3 04/14/21 07:57 Monocytes # (Manual) 0.0 K/mm3 (0.0-0.8) 04/14/21 07:57 Eosinophils # (Manual) 0.0 K/mm3 (0.0-0.4) 04/14/21 07:57 Basophils # (Manual) 0.0 K/mm3 (0.0-0.1) 04/14/21 07:57 Metamyelocytes # 0.0 K/mm3 04/14/21 07:57 Myelocytes # 0.0 K/mm3 04/14/21 07:57 Promyelocytes # 0.0 K/mm3 04/14/21 07:57 Blast Cells # 0.0 K/mm3 04/14/21 07:57 WBC Morphology Not Reportable 04/14/21 07:57 Hypersegmented Neuts Not Reportable 04/14/21 07:57 Hyposegmented Neuts Not Reportable 04/14/21 07:57 Hypogranular Neuts Not Reportable 04/14/21 07:57 Smudge Cells Not Reportable 04/14/21 07:57 Toxic Granulation Not Reportable 04/14/21 07:57 Toxic Vacuolation Not Reportable 04/14/21 07:57 Dohle Bodies Not Reportable 04/14/21 07:57 Pelger-Huet Anomaly Not Reportable 04/14/21 07:57 Manuel Rods Not Reportable 04/14/21 07:57 Platelet Estimate Consistent w auto 04/14/21 07:57 Clumped Platelets Not Reportable 04/14/21 07:57 Plt Clumps, EDTA Not Reportable 04/14/21 07:57 Large Platelets Not Reportable 04/14/21 07:57 Giant Platelets Few 04/14/21 07:57 Platelet Satelliting Not Reportable 04/14/21 07:57 Plt Morphology Comment Not Reportable 04/14/21 07:57 RBC Morphology Normal 04/14/21 07:57 Dimorphic RBCs Not Reportable 04/14/21 07:57 Polychromasia Not Reportable 04/14/21 07:57 Hypochromasia Not Reportable 04/14/21 07:57 Poikilocytosis Not Reportable 04/14/21 07:57 Anisocytosis Not Reportable 04/14/21 07:57 Microcytosis Not Reportable 04/14/21 07:57 Macrocytosis Not Reportable 04/14/21 07:57 Spherocytes Not Reportable 04/14/21 07:57 Pappenheimer Bodies Not Reportable 04/14/21 07:57 Sickle Cells Not Reportable 04/14/21 07:57 Target Cells Not Reportable 04/14/21 07:57 Tear Drop Cells Not Reportable 04/14/21 07:57 Ovalocytes Not Reportable 04/14/21 07:57 Helmet Cells Not Reportable 04/14/21 07:57 [place] Bodies Not Reportable 04/14/21 07:57 [place] Rings Not Reportable 04/14/21 07:57 [place] Cells Not Reportable 04/14/21 07:57 Bite Cells Not Reportable 04/14/21 07:57 Crenated Cell Not Reportable 04/14/21 07:57 Elliptocytes Not Reportable 04/14/21 07:57 Acanthocytes (Spur) Not Reportable 04/14/21 07:57 Rouleaux Not Reportable 04/14/21 07:57 Hemoglobin C Crystals Not Reportable 04/14/21 07:57 Schistocytes Not Reportable 04/14/21 07:57 Malaria parasites Not Reportable 04/14/21 07:57 Phillip Bodies Not Reportable 04/14/21 07:57 Hem Pathologist Commnt No 04/14/21 07:57 PT 16.0 Sec. (12.2-14.9) H 04/13/21 11:30 INR 1.23 (0.87-1.13) H 04/13/21 11:30 APTT 32.2 Sec. (24.2-36.6) 04/13/21 11:30 D-Dimer 289.64 ng/mlDDU (0-234) H 04/13/21 11:30 Sodium 140 mmol/L (137-145) 04/14/21 07:57 Potassium 3.4 mmol/L (3.6-5.0) L 04/14/21 07:57 Chloride 99.0 mmol/L (98-107) 04/14/21 07:57 Carbon Dioxide 24 mmol/L (22-30) 04/14/21 07:57 Anion Gap 20 mmol/L 04/14/21 07:57 BUN 10 mg/dL (7-17) 04/14/21 07:57 Creatinine 0.5 mg/dL (0.6-1.2) L 04/14/21 07:57 Estimated GFR > 60 ml/min 04/14/21 07:57 BUN/Creatinine Ratio 20 % 04/14/21 07:57 Glucose 159 mg/dL (65-100) H 04/14/21 07:57 Lactic Acid 0.90 mmol/L (0.7-2.0) 04/13/21 11:30 Calcium 9.2 mg/dL (8.4-10.2) 04/14/21 07:57 Magnesium 1.90 mg/dL (1.7-2.3) 04/14/21 07:57 Ferritin 379.8 ng/mL (10.0-200.0) H 04/13/21 11:30 Total Bilirubin 0.60 mg/dL (0.1-1.2) 04/14/21 07:57 AST 16 units/L (5-40) 04/14/21 07:57 ALT 12 units/L (7-56) 04/14/21 07:57 Alkaline Phosphatase 76 units/L (35-129) 04/14/21 07:57 Lactate Dehydrogenase 264 units/L (91-180) H 04/13/21 11:30 Total Creatine Kinase 83 units/L (30-135) 04/13/21 11:30 Troponin T < 0.010 ng/mL (0.00-0.029) 04/13/21 11:30 C-Reactive Protein 27.70 mg/dL (0.00-1.30) H 04/13/21 11:30 Total Protein 7.4 g/dL (6.3-8.2) 04/14/21 07:57 Albumin 4.3 g/dL (3.9-5) 04/14/21 07:57 Albumin/Globulin Ratio 1.4 % 04/14/21 07:57 Procalcitonin 0.32 ng/mL (<0.15) 04/13/21 11:30 Urine Color Ana (Yellow) 04/13/21 Unknown Urine Turbidity Slightly-cloudy (Clear) 04/13/21 Unknown Urine pH 5.0 (5.0-7.0) 04/13/21 Unknown Ur Specific [place] 1.027 (1.003-1.030) 04/13/21 Unknown Urine Protein 100 mg/dl mg/dL (Negative) 04/13/21 Unknown Urine Glucose (UA) 50 mg/dL (Negative) 04/13/21 Unknown Urine Ketones 20 mg/dL (Negative) 04/13/21 Unknown Urine Blood Mod (Negative) 04/13/21 Unknown Urine Nitrite Neg (Negative) 04/13/21 Unknown Urine Bilirubin Neg (Negative) 04/13/21 Unknown Urine Urobilinogen 4.0 mg/dL (<2.0) 04/13/21 Unknown Ur Leukocyte Esterase Neg (Negative) 04/13/21 Unknown Urine WBC (Auto) 4.0 /HPF (0.0-6.0) 04/13/21 Unknown Urine RBC (Auto) 14.0 /HPF (0.0-6.0) 04/13/21 Unknown U Epithel Cells (Auto) 7.0 /HPF (0-13.0) 04/13/21 Unknown Urine Mucus Few /HPF 04/13/21 Unknown Coronavirus (PCR) Negative (Negative) 04/13/21 Unknown Microbiology: Microbiology 04/13/21 11:30 Peripheral/Venous Blood Culture - Preliminary NO GROWTH AFTER 48 HOURS 04/13/21 11:30 Peripheral/Venous Blood Culture - Preliminary NO GROWTH AFTER 48 HOURS Thomas/IV: Voiding Method Toilet Active Medications - Current Medications Current Medications: Generic Name Dose Route Start Last Admin Trade Name Freq PRN Reason Stop Dose Admin Acetaminophen 650 mg 04/13/21 15:35 Acetaminophen 325 Mg Tab PO Q4H PRN Pain MILD(1-3)/Fever >100.5/ALCAZAR Albuterol 2.5 mg 04/13/21 18:40 04/14/21 12:15 Albuterol 2.5 Mg/3 Ml Nebu IH 04/16/21 18:39 2.5 mg Q6HRT PRN Administration Agitation Alprazolam 0.5 mg 04/13/21 14:51 Alprazolam 0.5 Mg Tab PO BID PRN Anxiety Cetirizine HCl 10 mg 04/13/21 19:00 04/15/21 14:56 Cetirizine 10 Mg Tab PO Not Given QDAY ROGELIO Diphenhydramine HCl 25 mg 04/13/21 14:51 Diphenhydramine 25 Mg Cap PO Q6HR PRN Itching Docusate Sodium 100 mg 04/13/21 14:51 Docusate Sodium 100 Mg Cap PO BID PRN Constipation Enoxaparin Sodium 40 mg 04/13/21 18:00 04/15/21 14:56 Enoxaparin 40 Mg/0.4 Ml Inj SUB-Q Not Given QDAY ROGELIO Famotidine 20 mg 04/13/21 22:00 04/15/21 21:31 Famotidine 20 Mg Tab PO 20 mg BID ROGELIO Administration Furosemide 40 mg 04/14/21 06:00 04/16/21 05:37 Furosemide 40 Mg/4 Ml Inj IV 40 mg DAILY@0600 ROGELIO Administration Guaifenesin 10 ml 04/13/21 14:51 04/16/21 05:37 Guaifenesin Dm 200/20 Mg Oral Liqd 10 Ml PO 10 ml Q4H PRN Administration Cough Hydralazine HCl 10 mg 04/13/21 14:51 Hydralazine 20 Mg/1 Ml Inj IV Q4HR PRN Hypertension Hydrocortisone Acetate 1 applic 04/13/21 14:51 04/15/21 21:34 Hydrocortisone 2.5% Topical Cream 20 Gm TP 1 applic TID ROGELIO Administration Levofloxacin 750 mg 04/15/21 12:00 04/15/21 14:59 Levofloxacin 750 Mg Tab PO 04/17/21 10:01 750 mg Q24HR ROGELIO Administration Protocol Methylprednisolone Sodium Succinate 60 mg 04/13/21 22:00 04/16/21 05:38 Methylprednisolone Sod Succinate 125 Mg/2 Ml Inj IV 60 mg Q8HR ROGELIO Administration Sodium Chloride 10 ml 04/13/21 22:00 04/15/21 21:32 Sodium Chloride 0.9% 10 Ml Flush Syringe IV 10 ml BID ROGELIO Administration Sodium Chloride 10 ml 04/13/21 14:51 Sodium Chloride 0.9% 10 Ml Flush Syringe IV PRN PRN LINE FLUSH
[2021-04-16] MEDS: CETIRIZINE 10 MG TAB PO SCH (09:21)
[2021-04-16] MEDS: FAMOTIDINE 20 MG TAB PO SCH ×2 (09:21→22:55)
[2021-04-16] MEDS: ENOXAPARIN 40 MG/0.4 ML INJ SUB-Q SCH (09:21)
[2021-04-16] MEDS: levoFLOXacin 750 MG TAB PO SCH (09:21)
[2021-04-16] MEDS: HYDROCORTISONE 2.5% Topical CREAM 20 GM TP SCH ×3 (09:22→22:56)
[2021-04-16] MEDS: DOCUSATE SODIUM 100 MG CAP PO PRN ×2 (09:26→22:55)
[2021-04-16 09:50] LABS: Hematocrit 41.5 % (30.3-42.9); Hemoglobin 13.6 gm/dl (10.1-14.3); Mean Corpuscular HGB Conc 33 % (30-34); Mean Corpuscular Volume 94 fl (79-97); Platelet Count 256 K/mm3 (140-440); Red Blood Count 4.44 M/mm3 (3.65-5.03); Red Cell Distribution Width 13.9 % (13.2-15.2)
--- NOTE | 2021-04-16 14:34 | XRay Report ---
CHEST 1 VIEW 04/16/2021 11:16 AM INDICATION / CLINICAL INFORMATION: Follow-up bilateral pneumonia. COMPARISON: 04/12/21. FINDINGS: SUPPORT DEVICES: None. HEART / MEDIASTINUM: The heart size and pulmonary vasculature are normal. LUNGS / PLEURA: There are mild patchy parenchymal opacities in both mid to lower lung zones, right gr eater than left, which are significantly improved. No new abnormality. No pneumothorax. ADDITIONAL FINDINGS: No significant additional findings. IMPRESSION: Improving bilateral pneumonia. Signer Name: Renan Riddle MD Signed: 04/16/2021 2:29 PM Workstation Name: [id number]
[2021-04-16 14:51] LABS: Band Neutrophils # (Manual) 0.2 K/mm3; Platelet Estimate Consistent w Auto; RBC Morphology Normal; Total Cells Counted 100
[2021-04-17] MEDS: guaiFENesin DM 200/20 MG ORAL LIQD 10 ML PO PRN (05:48)
[2021-04-17] MEDS: FUROSEMIDE 40 MG/4 ML INJ IV SCH (05:48)
[2021-04-17] MEDS: methylPREDNISolone Sod Succinate 125 MG/2 ML INJ IV SCH ×2 (05:48→13:34)
[2021-04-17] MEDS: DOCUSATE SODIUM 100 MG CAP PO PRN (05:49)
[2021-04-17] MEDS: ENOXAPARIN 40 MG/0.4 ML INJ SUB-Q SCH (09:16)
[2021-04-17] MEDS: levoFLOXacin 750 MG TAB PO SCH (09:16)
[2021-04-17] MEDS: FAMOTIDINE 20 MG TAB PO SCH (09:16)
[2021-04-17] MEDS: HYDROCORTISONE 2.5% Topical CREAM 20 GM TP SCH ×2 (09:19→13:35)
[2021-04-17] MEDS: CETIRIZINE 10 MG TAB PO SCH (09:22)
--- NOTE | 2021-04-17 11:49 | Discharge Summary ---
Providers - Providers Date of Admission: 04/14/21 08:30 Date of discharge: 04/17/21 Attending physician: ALAN LOPEZ Primary care physician: [facility] Hospitalization Reason for admission: Worsening shortness of breath/acute hypoxic respiratory failure Condition: Fair Pertinent studies: 04/12/2021; chest x-ray; bilateral pneumonia 04/17/2021 chest x-ray resolving pneumonia Hospital course: 50-year-old morbidly obese female patient with significant past medical history of COPD hypertension depression chronic pain syndrome presented to the emergency room with worsening shortness of breath of 1 day duration of 1 day duration. Patient was initially seen in the emergency room was discharged on medications however patient came back with worsening symptoms chest x-ray done on 04/12/2021 findings consistent with patchy bilateral pneumonia. Admitted the patient and treated as community-acquired pneumonia with a ntibiotics oxygen and supportive care patient required 2 to 3 L of oxygen .patient symptoms slowly but significantly improved, Patient's COVID-19 test is negative Follow-up chest x-ray showed resolving pneumonia, today patient is comfortable no new complaints Home O2 evaluation is consistent with hypoxia requiring 2 to 3 L of nasal cannula, case management set up home oxygen. Patient is ambulatory and tolerating oral nutrition stable at discharge. Discharge diagnosis; --Bilateral pneumonia[patchy] Probably community-acquired pneumonia; Empiric antibiotics Levaquin. Oxygen titrate O2 sats to more than 90% Blood cultures negative to date COVID-19 test is negative -- Acute respiratory failure with hypoxia requiring supplemental oxygen Probably due to community-acquired pneumonia Oxygen titrate O2 sats more than 90% Covid negative, persistent hypoxia, home oxygen evaluation Patient needs 2 to 3 L of nasal cannula home oxygen upon discharge CM set up home O2 --Leukocytosis; due to pneumonia, partly due to steroid use Trending down, -- COVID-19 test negative;DC isolation --Morbid obesity BMI 40.9 patient needs dietary modification, exercise as tolerated and weight reduction when medically stable Follow electrolytes --Hypokalemia Replenished with KCl Resolved Today patient is comfortable no new complaints vital signs stable physical examination unremarkable Stable at discharge Disposition: DC-01 TO HOME OR SELFCARE Final Discharge Diagnosis (Prints w/discharge instructions): Bilateral pneumonia/community-acquired. COVID-19 test negative. Acute hypoxic respirato ry failure. Home oxygen required. Leukocytosis. Hypokalemia corrected. Morbid obesity BMI 40.9 Time spent for discharge: 35 min Core Measure Documentation - Palliative Care Palliative Care/ Comfort Measures: Not Applicable - Core Measures Any of the following diagnoses?: none Exam - Constitutional Vitals: Temp Pulse Resp BP Pulse Ox 98.0 F 52 L 14 145/71 93 04/16/21 22:52 04/16/21 22:52 04/16/21 22:52 04/17/21 05:46 04/16/21 22:52 General appearance: Present: no acute distress, well-nourished - EENT Eyes: Present: PERRL, EOM intact - Neck Neck: Present: supple, normal ROM - Respiratory Respiratory effort: normal Respiratory: bilateral: diminished, negative: rales, rhonchi, wheezing - Cardiovascular Rhythm: regular Heart Sounds: Present: S1 & S2 - Extremities Extremities: no ischemia, No edema - Abdominal General gastrointestinal: Present: soft, non-tender, non-distended, normal bowel sounds - Integumentary Integumentary: Present: clear, warm - Musculoskeletal Musculoskeletal: strength equal bilaterally, generalized weakness - Psychiatric Psychiatric: appropriate mood/affect, cooperative - Neurologic Neurologic: CNII-XII intact, moves all extremities Plan Activity: advance as tolerated Diet: regular Durable Medical Equipment Needed Upon Discharge: Oxygen (Home oxygen 3 L as needed) Additional Instructions: Advised to comply with medications diet follow-up visits. Advised diet modification, exercise as tolerated and weight reduction when medically stable. If you have worsening symptoms contact MD or go to emergency room as needed Follow up with: PRIMARY CARE,MD [Primary Care Provider] - 3-5 Days Prescriptions: Loratadine (Nf) [Claritin (Nf)] 10 mg PO DAILY #15 tablet levoFLOXacin [Levaquin] 750 mg PO QDAY #4 tablet Famotidine [Pepcid] 20 mg PO BID #20 tablet Prednisone [predniSONE 10 mg (6-Day Pack, 21 Tabs)] 10 mg PO .TAPER #1 tab.ds.pk Albuterol Sulfate [Proair Respiclick] 90 mcg IH Q4H PRN #1 aer.pow.[email or web address] PRN Reason: Wheezing Benzonatate [Tessalon Perles] 100 mg PO Q8HR PRN #15 capsule PRN Reason: Cough
[2021-04-17 12:54] VITALS: BP 152/71
== END 2021-04-17 17:50 | disposition home or self-care (01) | DRG 871 ==
LOC: ED 02:31 → 3A 15:35 → OBSVTOIN 04-14 08:30 → 3A 04-14 13:16
PROVIDERS: ADMIT Internal Medicine; ATTEND Internal Medicine
DX: A41.9 Sepsis, unspecified organism (principal); J18.8 Other pneumonia, unspecified organism; J96.01 Acute respiratory failure with hypoxia; Z68.41 Body mass index [BMI] 40.0-44.9, adult; J44.0 Chronic obstructive pulmonary disease with (acute) lower respiratory infection; E87.2 Acidosis; R65.10 Systemic inflammatory response syndrome (SIRS) of non-infectious origin without acute organ dysfunction; Z20.822 Contact with and (suspected) exposure to COVID-19; E87.6 Hypokalemia; E66.01 Morbid (severe) obesity due to excess calories; E11.9 Type 2 diabetes mellitus without complications; I10 Essential (primary) hypertension; D72.829 Elevated white blood cell count, unspecified; J44.9 Chronic obstructive pulmonary disease, unspecified; Z90.710 Acquired absence of both cervix and uterus; Z79.899 Other long term (current) drug therapy; Z71.3 Dietary counseling and surveillance; Z79.891 Long term (current) use of opiate analgesic; Z79.01 Long term (current) use of anticoagulants; Z98.891 History of uterine scar from previous surgery
CPT/HCPCS: 36415; 71045; 71046; 80053; 81001; 82140; 82550; 82728; 83615; 83735; 83880; 84132; 84145; 84484; 85007; 85025; 85379; 85610; 85730; 86140; 87040; 93005; 94640; 96365; 96367; 96375; 99406; G0378; A6250; J0456; J0696; J1100; J1650; J1940; J1956; J2405; J2930; J7030; U0003